=== PATIENT | female | born 1945 | race African-American/Black ===

== ENCOUNTER 2024-04-23 09:37 | Outpatient (AMB) | payer MEDICARE, SELFPAY ==
--- NOTE | 2024-04-23 09:45 | A.OFFVIS_ITS ---
Vital Signs 04/23/24 09:50 Height 5 ft 2.5 in Weight 171 lb 2 oz BMI 30.8 BP 136/78 Blood Pressure Location Rt brachial Position Sitting Respiration 16 Pulse 78 Pulse Source Pulse Oximeter Pulse Oximetry (%) 98 Oxygen Delivery Method Room Air Intake Visit Reasons: ENP: Dementia - CONF Intake Note: Pt presents for new pt consultation for dementia. Roof Panel Hanger Required: No Allergies diphtheria,pertussis (acellular),te [From Adacel(Tdap Adolesn/Adult)(PF)] Allergy (Mild, Verified 04/23/24 09:47) Unknown metronidazole Allergy (Mild, Verified 04/23/24 09:47) Unknown pentazocine [From Talwin] Allergy (Mild, Verified 04/23/24 09:47) Unknown Medication List - Last Reconciled 04/23/24 by Bria Manriquez MD albuterol sulfate 90 mcg/actuation 2 puffs inhalation Q6H PRN cholecalciferol (vitamin D3) 50 mcg PO DAILY famotidine 20 mg PO DAILY metformin 500 mg PO DAILY HPI Comments Details: 78y/o Right handed female comes for evaluation of cognitive issues. she is accompanied by her daughter who helps with history.In 2019 her family started noticing that the patient was having some issues with cognition. It has progressed since then , has trouble recalling , trouble with conversations, difficulty making decisions, poor judgement, misplacing things around the house etc. she mahmood snot cook as frequently as she was before but independent in all her ADLs. she drives rarely usually with someone in the car. she used work as a geriatric nurse , has fh/o Alzheimers - mother. Mood is stable Sleep- used to work night shifts and still has some circadian rhythm issues.she also snoring and excessive daytime fatigue [facility] Medical History (Updated 04/23/24 @ 10:22 by Bria Manriquez MD) Hypersomnia Snoring Cognitive change Chronic kidney disease Fibroids Asthma Lumbar spondylosis Arthritis Glaucoma Diabetes Surgical History H/O colonoscopy Social History Household Members: Family Housing: House Alcohol intake: current Comment: seldom Patient Tobacco Use Status: Never used Tobacco Physical Exam Vital Signs: Last Vital Signs Pulse 78 04/23/24 09:50 Resp 16 04/23/24 09:50 BP 136/78 04/23/24 09:50 Pulse Ox 98 04/23/24 09:50 Oxygen Delivery Method Room Air 04/23/24 09:50 BMI result Body Mass Index 30.8 Const General: cooperative, healthy appearing, comfortable and no acute distress Nutritional Appearance: overweight Orientation/consciousness: patient oriented x3 Eyes Pupils: Equal, round and reactive pupils present Neuro General: patient oriented x3, gait normal, tone normal, moves all extremities and no focal motor deficits Cranial nerves: Yes Facial sensation intact/muscles of mastication intact, Yes Equal, round and reactive pupils present, Yes Bilaterally intact EOM present, Yes Nystagmus not present, Yes Normal facial strength present, Yes Midline tongue present, Yes Symmetric palate elevation present and Yes Ability to bilaterally elevate shoulders present Cognition (Neuro): normal cognition Gait exam (Neuro): Normal gait present Motor exam (neuro): 5/5 motor strength present throughout and Normal motor muscle tone present throughout Deep tendon reflexes (DTR's): Right triceps reflex intensity grade: 2+, Left triceps reflex intensity grade: 2+, Rt Biceps (C5, C6): 2+, Left biceps reflex intensity grade: 2+, Right brachioradialis reflex intensity grade: 2+, Left brachioradialis reflex intensity grade: 2+ and Right patellar reflex intensity grade: 2+ Coordination: [id number] test normal Orientation What is the (year) (season) (date) (day) (month)?: year, season, date, day and month Where are we (state) (county) (town or city) (hospital) (floor)?: state, county, town or city, hospital/clinic and floor Registration Name of 3 unrelated objects clearly and slowly, then ask patient to repeat all 3 of them. (1st repeat determines score. Make sure they can repeat all three): object 1, object 2 and object 3 Attention & Calculation (CHOOSE ONE) Spell WORLD backwards (DLROW): 5 letters Recall Ask patient to repeat the 3 items from question #3.: object 1, object 2 and object 3 Language Show patient a wristwatch & ask what it is. Repeat for pencil.: watch and pencil Ask the patient to repeat the phrase 'No ifs, ands, or buts' after you.: correct Ask the patient to 'take a piece of paper with their right hand' 'fold paper in half' 'place paper on floor': take paper in right hand, fold paper in half and place paper on floor Print the sentence 'CLOSE YOUR EYES' on a piece. If patient actually closes eyes then score.: followed written direction Give patient a blank piece of paper & ask to write a sentence. Score if it contains a noun & verb.: sentence contains subject and verb Ask patient to copy figure of intersecting pentagons exactly. Score if all 10 angles & 2 intersects are included.: all 10 angles present & 2 are intersected Score Score: 30 Assessment & Plan Assessment & Plan (1) Cognitive change: Comment: ? mild cognitive impairment Code(s): R41.89 - Other symptoms and signs involving cognitive functions and awareness Category: Medical (2) Snoring: Code(s): R06.83 - Snoring Category: Medical (3) Hypersomnia: Code(s): G47.10 - Hypersomnia, unspecified Category: Medical Plan MRI brain Labs- TSH ESR RPR CBC CMP Home sleep test to r/o sleep apnea Orders: Orders Complete Blood Count Auto Diff Today G47.10 - Hypersomnia, unspecified, R06.83 - Snoring, R41.89 - Other symptoms and signs involving cognitive functions and awareness TSH reflex Free T4 Today G47.10 - Hypersomnia, unspecified, R06.83 - Snoring, R41.89 - Other symptoms and signs involving cognitive functions and awareness MR brain wo con w neuroquant Today G47.10 - Hypersomnia, unspecified, R06.83 - Snoring, R41.89 - Other symptoms and signs involving cognitive functions and awareness RT home sleep study Today G47.10 - Hypersomnia, unspecified, R06.83 - Snoring, R41.89 - Other symptoms and signs involving cognitive functions and awareness Comprehensive Met. Panel Today G47.10 - Hypersomnia, unspecified, R06.83 - Snoring, R41.89 - Other symptoms and signs involving cognitive functions and awareness Vitamin B12 and Folate Today G47.10 - Hypersomnia, unspecified, R06.83 - Snoring, R41.89 - Other symptoms and signs involving cognitive functions and awareness Erythrocyte Sedimentation Rate Today G47.10 - Hypersomnia, unspecified, R06.83 - Snoring, R41.89 - Other symptoms and signs involving cognitive functions and awareness RPR Monitor reflex titer Today G47.10 - Hypersomnia, unspecified, R06.83 - Snoring, R41.89 - Other symptoms and signs involving cognitive functions and awareness Vitamin D 25-OH (D2 and D3) Today R41.89 - Other symptoms and signs involving cognitive functions and awareness Coding Level of Care Code New Pt Level 4 (45009) Diagnoses Cognitive change R41.89 Snoring R06.83 Hypersomnia G47.10
[2024-04-23 09:50] VITALS: BP 136/78; PULSE 78; RESP 16; O2SAT 98; BMI 30.8
== END 2024-04-23 10:27 | disposition home or self-care (01) ==
PROVIDERS: PCP Student in an Organized Health Care Education/Training Program; Visit Provider Psychiatry & Neurology Neurology
DX: R41.89 Other symptoms and signs involving cognitive functions and awareness (principal); R06.83 Snoring; G47.10 Hypersomnia, unspecified
CPT/HCPCS: 99204

== ENCOUNTER → 2024-04-23 09:37 | Outpatient (BNVA) | payer MEDICARE, SELFPAY | PROVIDERS: PCP Student in an Organized Health Care Education/Training Program; Visit Provider Psychiatry & Neurology Neurology | DX: R41.89 Other symptoms and signs involving cognitive functions and awareness (principal); R06.83 Snoring; G47.10 Hypersomnia, unspecified | CPT/HCPCS: 99202 ==

== ENCOUNTER 2024-04-23 10:33 | Outpatient (REF) | payer MEDICARE, SELFPAY ==
[2024-04-23 17:26] LABS: MANUAL DIFF FLAG NO
[2024-04-23 17:48] LABS: Basophils Percent Auto 0.7 % (0-2); Eosinophils Absolute Auto 0.1 X10*3/uL (0.0-0.4); Eosinophils Percent Auto 0.9 % (0-4); Hematocrit 42.4 % (37.0-47.0); Hemoglobin 13.8 g/dl (12.0-16.0); Imm Gran Abs Auto 0.01 X10*3/uL (0.00-0.03); Imm Gran Pct Auto 0.2 % (0.0-0.4); Lymphocytes Percent Auto 35.2 % (20-40); Mean Corpuscular HGB Conc 32.5 g/dl (31.0-35.0); Mean Corpuscular Hemoglobin 31.2 pg (27.0-33.0); Mean Corpuscular Volume 95.7 fL (80.0-98.0); Mean Platelet Volume 12.8 fL (9.4-12.3); Monocytes Absolute Auto 0.3 X10*3/uL (0.1-1.2); Monocytes Percent Auto 5.9 % (2-11); Neutrophils Absolute Auto 3.3 x10*3/uL (2.0-8.3); Neutrophils Percent Auto 57.1 % (45-73); Platelet Count 171 X10*3/uL (160-400); Red Blood Count 4.43 X10*6/uL (4.20-5.50); Red Cell Distribution Width 13.8 % (11.0-16.0); White Blood Count 5.8 X10*3/uL (4.8-10.8)
[2024-04-23 17:58] LABS: Alanine Aminotransferase 20 U/L (0-31); Albumin Level 4.4 g/dL (3.5-5.0); Alkaline Phosphatase 74 U/L (39-117); Anion Gap 12 (12-20); Aspartate Amino Transferase 19 U/L (5-31); Bilirubin Total 1.2 mg/dL (0.0-1.0); Blood Urea Nitrogen 16 mg/dL (9-16); Calcium 10.3 mg/dL (8.4-10.2); Carbon Dioxide 26 mmol/L (22-29); Chloride 108 mmol/L (96-108); Estimated Glomerular Filt Rate 42; Glucose Random 217 mg/dL (60-115); Potassium 4.2 mmol/L (3.3-5.1); Sodium 142 mmol/L (135-145); Total Protein 7.8 g/dL (6.5-8.0)
[2024-04-23 18:14] LABS: TSH reflex Free T4 1.17 uIU/mL (0.32-4.0)
[2024-04-23 18:24] LABS: Folate 6.8 ng/mL (> or = 4.0); Vitamin B12 494 pg/mL (200-900)
[2024-04-23 18:46] LABS: Erythrocyte Sedimentation Rate 14 MM/HR (0-20)
[2024-04-24 23:39] LABS: RPR Rapid Plasma Reagin NON-REACTIVE (NON-REACTIVE)
[2024-04-27 16:08] LABS: Vitamin D 25-OH, D2 <4 ng/mL; Vitamin D 25-OH, D3 28 ng/mL; Vitamin D 25-OH, Total 28 ng/mL (30-100)
== END 2024-04-23 10:34 | disposition home or self-care (01) ==
LOC: HO.HKASLDS 10:33
PROVIDERS: Visit Provider Psychiatry & Neurology Neurology
DX: R41.89 Other symptoms and signs involving cognitive functions and awareness (principal); R06.83 Snoring; G47.10 Hypersomnia, unspecified
CPT/HCPCS: 36415; 80053; 82306; 82607; 82746; 84443; 85025; 85652; 86592

== ENCOUNTER → 2024-06-10 13:06 | Outpatient (REF) | payer MEDICARE, SELFPAY | LOC: HO.SL 13:06 | PROVIDERS: PCP Student in an Organized Health Care Education/Training Program; Visit Provider Psychiatry & Neurology Neurology | DX: R06.83 Snoring (principal); R41.89 Other symptoms and signs involving cognitive functions and awareness; G47.10 Hypersomnia, unspecified | CPT/HCPCS: 95806 ==

== ENCOUNTER → 2024-06-15 13:44 | Outpatient (BNV) | payer MEDICARE, SELFPAY | PROVIDERS: PCP Student in an Organized Health Care Education/Training Program; Visit Provider Psychiatry & Neurology Neurology | DX: R06.83 Snoring (principal) | CPT/HCPCS: 95806 ==

== ENCOUNTER 2024-06-23 10:35 | Outpatient (REF) | payer MEDICARE, SELFPAY ==
--- NOTE | ~2024-06-23 | MR_ITS ---
EXAMINATION: MR BRAIN WITHOUT CONTRAST NEUROQUANT VOLUME ANALYSIS CLINICAL INFORMATION: Memory issues COMPARISON: None TECHNIQUE: Multiplanar multisequence MR imaging of the brain was obtained without intravenous contrast. Additional high-resolution anatomic imaging was performed through the brain and images were submitted for post processing including auto-segmentation and volumetric analysis. FINDINGS: There is no acute infarct on diffusion-weighted imaging. There is no intracranial hemorrhage on iron-sensitive imaging. No extra-axial collection or mass effect/herniation. Scattered periventricular and deep white matter and right pontine T2 FLAIR hyperintensities consistent with mild underlying microangiopathy. No hydrocephalus. Mild age-appropriate generalized cerebral volume loss with commensurate sulcal and ventricular prominence. The major flow voids at the skull base are preserved. Partially empty sella. The cerebellar tonsils are normally positioned. The craniocervical junction is normal. Degenerative changes of the upper cervical spine. Marrow signal is within normal limits. The visualized soft tissues are without significant abnormality. No signal abnormality within the paranasal sinuses or within the mastoid air cells. Baseline NeuroQuant morphometric assessment of the brain was performed. Hippocampal volumes have an age-adjusted normative percentile of 5. The superior lateral ventricles have a normative percentile of 76, and the inferior lateral ventricles have a normative percentile of 61. MR/MR brain wo con w neuroquant IMPRESSION: 1. Baseline hippocampal volumes are low without ex-vacuo dilatation. 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 A follow up examination is recommended to establish presence and trajectory of volume change. 2. Mild age-appropriate generalized volume loss and mild chronic microangiopathy. Electronically signed by: Marck Avila MD 07/08/2024 12:05 PM EDT
== END 2024-06-23 10:36 | disposition home or self-care (01) ==
LOC: HO.MRI 10:35
PROVIDERS: PCP Student in an Organized Health Care Education/Training Program; Visit Provider Psychiatry & Neurology Neurology
DX: R41.89 Other symptoms and signs involving cognitive functions and awareness (principal); R06.83 Snoring; G47.10 Hypersomnia, unspecified
CPT/HCPCS: 70551; 76377

== ENCOUNTER 2024-09-22 09:14 | Outpatient (AMB) | payer MEDICARE, SELFPAY ==
--- NOTE | 2024-09-22 09:17 | A.OFFVIS_ITS ---
Vital Signs 09/22/24 09:18 Height 5 ft 2.5 in Weight 176 lb 6 oz BMI 31.7 Intake Visit Reasons: follow up Dementia Intake Note: Patient presents for dementia Allergies diphtheria,pertussis (acellular),te [From Adacel(Tdap Adolesn/Adult)(PF)] Allergy (Mild, Verified 09/22/24 09:22) Unknown metronidazole Allergy (Mild, Verified 09/22/24 09:22) Unknown pentazocine [From Talwin] Allergy (Mild, Verified 09/22/24 09:22) Unknown HPI Comments Details: 78y/o Right handed female comes for evaluation of cognitive issues. She is accompanied by her daughter who helps with history. In 2019 her family started noticing that the patient was having some issues with cognition. It has progressed since then, has trouble recalling , trouble with conversations, difficulty making decisions, poor judgment, Misplacing things around the house etc. She can retrace her steps and find her items, but needs lists or else she will be shopping with her eyes when grocery shopping. She does not cook as frequently as she was before but independent in all her ADLs. Does not go up the stairs, created the living room into her bedroom. She drives locally and rarely usually with someone in the car. 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 Mood is stable she is happy, does crossword puzzles and word finders games. Exercises sometimes. Her children bring her to appointments, and keep an eye on her, the neighbors are friendly watch over her. Sleep- used to work night shifts and still has some circadian rhythm irregularities, she also snores at night. and has excessive daytime fatigue. Vision changes, needs to f/u has had some blurry vision. Hearing changes, can hear well at baseline but needs to f/u. Her diet is not good, but she is focusing on nutritional dense foods now after being diagnosed with diabetes, she has a sweet tooth. PFS Medical History Hypersomnia Snoring Cognitive change Chronic kidney disease Fibroids Asthma Lumbar spondylosis Arthritis Glaucoma Diabetes Surgical History H/O colonoscopy Social History Household Members: Family Housing: House Alcohol intake: current Comment: seldom Patient Tobacco Use Status: Never used Tobacco Review of Systems Const All systems reviewed & are unremarkable except as noted in HPI and below ENT Reports Normal hearing present Neuro Reports Normal hearing present Physical Exam Vital Signs: BMI result Body Mass Index 31.7 Const General: cooperative, comfortable and no acute distress Nutritional Appearance: average body habitus Orientation/consciousness: patient oriented x3 Eyes Pupils: Equal, round and reactive pupils present Resp Effort & Inspection: normal respiratory effort and able to speak in complete sentences Neuro General: patient oriented x3 and moves all extremities Cranial nerves: Yes CN's II-XII intact bilaterally, Yes Facial sensation intact/muscles of mastication intact, Yes Equal, round and reactive pupils present, Yes Normal accommodation reflex present, Yes Bilaterally intact EOM present, Yes Nystagmus not present, Yes Normal facial strength present, Yes Midline tongue present, Yes Normal hearing present, Yes Ability to bilaterally rotate head present and Yes Ability to bilaterally elevate shoulders present Gait exam (Neuro): Normal gait present Motor exam (neuro): 5/5 motor strength present throughout Deep tendon reflexes (DTR's): Right triceps reflex intensity grade: 2+, Left triceps reflex intensity grade: 2+, Rt Biceps (C5, C6): 2+, Left biceps reflex intensity grade: 2+, Right brachioradialis reflex intensity grade: 2+, Left brachioradialis reflex intensity grade: 2+, Right patellar reflex intensity grade: 2+ and Left patellar reflex intensity grade: 2+ Coordination: [id number] test normal Psych Appearance: well kempt Speech and movement: Slowed movement present (Neuro) Affect: normal affect Attitude: cooperative Thought process: Normal thought process present Thought content: Normal thought content present Orientation What is the (year) (season) (date) (day) (month)?: year, season, date and month Where are we (state) (county) (town or city) (hospital) (floor)?: state, county, town or city, hospital/clinic and floor Registration Name of 3 unrelated objects clearly and slowly, then ask patient to repeat all 3 of them. (1st repeat determines score. Make sure they can repeat all three): object 1, object 2 and object 3 Attention & Calculation (CHOOSE ONE) Spell WORLD backwards (DLROW): 5 letters Recall Ask patient to repeat the 3 items from question #3.: object 1, object 2 and object 3 Language Show patient a wristwatch & ask what it is. Repeat for pencil.: watch and pencil Ask the patient to repeat the phrase 'No ifs, ands, or buts' after you.: incorrect Ask the patient to 'take a piece of paper with their right hand' 'fold paper in half' 'place paper on floor': take paper in right hand and fold paper in half Print the sentence 'CLOSE YOUR EYES' on a piece. If patient actually closes eyes then score.: followed written direction Score Score: 25 Results Reviewed Results Reviewed: MRI Baseline NeuroQuant morphometric assessment of the brain was performed. Hippocampal volumes have an age-adjusted normative percentile of 5. The superior lateral ventricles have a normative percentile of 76, and the inferior lateral ventricles have a normative percentile of 61. HST 06/2024 Normal sleep study AHI <4 and O2 ethan 82% Assessment & Plan Assessment & Plan (1) Cognitive change: Comment: mild cognitive impairment Code(s): R41.89 - Other symptoms and signs involving cognitive functions and awareness Category: Medical (2) Hypersomnia: Code(s): G47.10 - Hypersomnia, unspecified Category: Medical (3) Snoring: Code(s): R06.83 - Snoring Category: Medical Plan MRI reviewed results with patient regarding changes on MRI Baseline NeuroQuant morphometric assessment of the brain was performed. Hippocampal volumes have an age-adjusted normative percentile of 5. The superior lateral ventricles have a normative percentile of 76, and the inferior lateral ventricles have a normative percentile of 61. HST Reviewed Results with patient today: HST 06/2024 Normal sleep study AHI <4 and O2 ethan 82% Cognitive Disorder MMSE 25/30 - in office today -Will send her for PET Scan to determine next steps in therapy. -Will Start her on Memantine and taper up to 28mg PO daily. 7mg PO daily for 2 weeks, then taper to 14mg PO daily for 2 weeks, then taper to 21mg PO daily for two weeks, then taper up to 28mg PO daily for 2 weeks. Follow up with Clinic by phone call or message us on the portal if you have any questions or concerns, on the portal or phone call. Orders: Orders PET Brain beta amyloid Today R41.89 - Other symptoms and signs involving cognitive functions and awareness Medications: New memantine 7mg PO daily -Take this medication for 14 days. Then taper up to the next dos e. 7 mg PO DAILY 14 ea 0RF 14 days R41.89 - Other symptoms and signs involving cognitive functions and awareness memantine 21mg PO daily for 14 days. Take this medication for 14 days then taper up to to the next dose. 21 mg PO DAILY 14 ea 0RF R41.89 - Other symptoms and signs involving cognitive functions and awareness memantine Take this medication 28mg PO daily. Call the office if you have any questions or concerns. 28 mg PO DAILY 30 ea 3RF R41.89 - Other symptoms and signs involving cognitive functions and awareness memantine 14mg PO daily, take this medication for 14 days and then taper up to the next dose. 14 mg PO DAILY 14 ea 0RF R41.89 - Other symptoms and signs involving cognitive functions and awareness Coding Level of Care Code Est Pt Level 4 (31898) Complex EM visit Add On G2211 Diagnoses Cognitive change R41.89 Hypersomnia G47.10 Snoring R06.83 Time Spent (min) 40 Comment Worsening dementia
[2024-09-22 09:18] VITALS: BMI 31.7
== END 2024-09-22 10:11 | disposition home or self-care (01) ==
PROVIDERS: PCP Student in an Organized Health Care Education/Training Program; Visit Provider Physician Assistant Medical
DX: R41.89 Other symptoms and signs involving cognitive functions and awareness (principal); G47.10 Hypersomnia, unspecified; R06.83 Snoring
CPT/HCPCS: 99214; G2211

== ENCOUNTER → 2024-09-22 09:14 | Outpatient (BNVA) | payer MEDICARE, SELFPAY | PROVIDERS: PCP Student in an Organized Health Care Education/Training Program; Visit Provider Physician Assistant Medical | DX: R41.89 Other symptoms and signs involving cognitive functions and awareness (principal); G47.10 Hypersomnia, unspecified; R06.83 Snoring | CPT/HCPCS: 99212 ==

== ENCOUNTER 2025-03-24 09:35 | Outpatient (AMB) | payer MEDICARE, SELFPAY ==
[2025-03-24 09:40] VITALS: BP 120/76; PULSE 77; O2SAT 97; BMI 31.2
--- NOTE | 2025-03-24 09:40 | MHC.OFFVIS ---
Vital Signs 03/24/25 09:40 Height 5 ft 2.5 in Weight 173 lb 8 oz BMI 31.2 BP 120/76 Blood Pressure Location Rt brachial Position Sitting Pulse 77 Pulse Source Pulse Oximeter Pulse Oximetry (%) 97 Oxygen Delivery Method Room Air Intake Visit Reasons: follow up Dementia Intake Note: Patient presents follow up Dementia medication. No-showed PET. Allergies diphtheria,pertussis (acellular),te [From Adacel(Tdap Adolesn/Adult)(PF)] Allergy (Mild, Verified 03/24/25 09:44) Unknown metronidazole Allergy (Mild, Verified 03/24/25 09:44) Unknown pentazocine [From Talwin] Allergy (Mild, Verified 03/24/25 09:44) Unknown HPI Comments Details: 79y/o Right handed female comes for evaluation of cognitive issues. She is accompanied by her daughter Kyara who helps with history, they missed the pet scan appt due to a in the family in . HST 06/2024 was inconclusive AHI is 3.4, and OAI 1.6, oxygen Nadirs to 82%. MRI 06/2024 volume loss in hippocami and neuroquant reviewed with patient. In 2019 her family started noticing she has trouble recalling , trouble with conversations, difficulty making decisions, poor judgment. Misplacing things around the house etc. Now she is more delusional, gets confused with past occurrences and timelines. She snores at night, has irregular sleep patterns and is chronically fatigued. She can retrace her steps and find her items, but needs lists and taskers to prompt her memory. She used to work as a geriatric nurse, has fh/o Alzheimers, mother and father, both in 90s when passed. She is independent in all her ADLs. She no longer is driving, or climbing stairs, she is looking for a one bedroom apt that is one level. MMSE 26/30 today. Recently diagnosed with diabetes, and blood sugars in the 160s metformin 500mg, since April. Mood is stable she is happy, does crossword puzzles and word finders games. Her children bring her to appointments, and the neighbors visit daily. Vision gets blurry and she gets headaches 2-3 times a week but go away in 30 min with diet, naps or water intake, will monitor. She started walking sometimes and this still is challenging for her as she is an introvert. [facility] Medical History Hypersomnia Snoring Cognitive change Chronic kidney disease Fibroids Asthma Lumbar spondylosis Arthritis Glaucoma Diabetes Surgical History H/O colonoscopy Social History Household Members: Family Housing: House Alcohol intake: current Comment: seldom Patient Tobacco Use Status: Never used Tobacco Physical Exam Vital Signs: Last Vital Signs Pulse 77 03/24/25 09:40 BP 120/76 03/24/25 09:40 Pulse Ox 97 03/24/25 09:40 Oxygen Delivery Method Room Air 03/24/25 09:40 BMI result Body Mass Index 31.2 Const General: cooperative, comfortable and no acute distress Nutritional Appearance: average body habitus Orientation/consciousness: patient oriented x3 Eyes Pupils: Equal, round and reactive pupils present Resp Effort & Inspection: normal respiratory effort and able to speak in complete sentences Neuro General: patient oriented x3 and moves all extremities Cranial nerves: Yes Facial sensation intact/muscles of mastication intact, Yes Equal, round and reactive pupils present, Yes Normal accommodation reflex present, Yes Normal facial strength present, Yes Ability to bilaterally rotate head present and Yes Ability to bilaterally elevate shoulders present Gait exam (Neuro): Normal gait present Motor exam (neuro): 5/5 motor strength present throughout Psych Appearance: well kempt Speech and movement: Slowed movement present (Neuro) Affect: normal affect Attitude: cooperative Thought process: Normal thought process present Thought content: Normal thought content present Orientation What is the (year) (season) (date) (day) (month)?: year, season, date, day and month Where are we (state) (county) (town or city) (hospital) (floor)?: state, county, town or city and hospital/clinic Registration Name of 3 unrelated objects clearly and slowly, then ask patient to repeat all 3 of them. (1st repeat determines score. Make sure they can repeat all three): object 1, object 2 and object 3 Attention & Calculation (CHOOSE ONE) Spell WORLD backwards (DLROW): 3 letters Recall Ask patient to repeat the 3 items from question #3.: object 1, object 2 and object 3 Language Show patient a wristwatch & ask what it is. Repeat for pencil.: watch and pencil Ask the patient to repeat the phrase 'No ifs, ands, or buts' after you.: correct Ask the patient to 'take a piece of paper with their right hand' 'fold paper in half' 'place paper on floor': take paper in right hand, fold paper in half and place paper on floor Print the sentence 'CLOSE YOUR EYES' on a piece. If patient actually closes eyes then score.: followed written direction Give patient a blank piece of paper & ask to write a sentence. Score if it contains a noun & verb.: sentence contains subject and verb Score Score: 26 Results Reviewed Results Reviewed: HST 06/2024 was inconclusive AHI is 3.4, and OAI 1.6, oxygen Nadirs to 82%. MRI 06/2024 volume loss in hippocami and neuroquant reviewed with patient. Assessment & Plan Assessment & Plan (1) Cognitive change: Comment: mild cognitive impairment/ alzheimers not LBD Code(s): R41.89 - Other symptoms and signs involving cognitive functions and awareness Category: Medical (2) Loud snoring: Code(s): R06.83 - Snoring Category: Medical (3) Frequent headaches: Code(s): R51.9 - Headache, unspecified Category: Medical (4) Excessive daytime sleepiness: Code(s): G47.19 - Other hypersomnia Category: Medical (5) Hypersomnia: Code(s): G47.10 - Hypersomnia, unspecified Category: Medical (6) Snoring: Code(s): R06.83 - Snoring Category: Medical Plan 06/2024 MRI reviewed results with patient regarding changes on MRI Baseline NeuroQuant. Hippocampal volumes have an age-adjusted normative percentile of 5. HST reviewed AHI <4 and O2 ethan 82%, will send for PSG as patient has excessive daytime fatigue. Cognitive Decline/ Alzheimers early onset.MMSE 26/30 Will send her for PET Scan to determine next steps in therapy along with APO E4 testing for leqembi or kisunla therapy? Continue Memantine 28mg po daily. Continue to socialize, do puzzles, walking daily for 15 - 30 min as tolerable and drinking lots of water. Labs are pending vit d is low, take a daily vit d, refer to pcp re: A1c and blood glucose. Headaches sumatriptatn 50mg po as needed for acute headaches, may repeat in 2hours, not to exceed 100mg in a 24 hour period. f/u in 3mons. Orders: [place] [facility] [place] F02.80 - Dementia in other diseases classified elsewhere, unspecified severity, without behavioral disturbance, psychotic disturbance, mood disturbance, and anxiety, G30.9 - Alzheimer's disease, unspecified Complete Blood Count no Diff 03/24/25 G47.19 - Other hypersomnia, R41.89 - Other symptoms and signs involving cognitive functions and awareness TSH reflex Free T4 03/24/25 G47.19 - Other hypersomnia, R41.89 - Other symptoms and signs involving cognitive functions and awareness Vitamin B12 and Folate 03/24/25 G47.19 - Other hypersomnia, R41.89 - Other symptoms and signs involving cognitive functions and awareness RT PSG in-lab sleep study 03/24/25 G47.19 - Other hypersomnia, R06.83 - Snoring Comprehensive Met. Panel 03/24/25 G47.19 - Other hypersomnia, R41.89 - Other symptoms and signs involving cognitive functions and awareness Ferritin 03/24/25 G47.19 - Other hypersomnia, R41.89 - Other symptoms and signs involving cognitive functions and awareness Hemoglobin A1c 03/24/25 G47.19 - Other hypersomnia, R41.89 - Other symptoms and signs involving cognitive functions and awareness Homocysteine 03/24/25 G47.19 - Other hypersomnia, G47.9 - Sleep disorder, unspecified, R41.89 - Other symptoms and signs involving cognitive functions and awareness, R53.83 - Other fatigue Methylmalonic Acid 03/24/25 G47.19 - Other hypersomnia, G47.9 - Sleep disorder, unspecified, R41.89 - Other symptoms and signs involving cognitive functions and awareness, R53.83 - Other fatigue Vitamin D 25-OH Total 03/24/25 G47.19 - Other hypersomnia, R41.89 - Other symptoms and signs involving cognitive functions and awareness Medications: New sumatriptan succinate 50 mg orally; at the onset of acute headaches may repeat in 2 hours if headache does not subside. not to exceed 100mg po with in 24 hours. 10 tabs 0RF headaches 30 days MDD 100mg R51.9 - Headache, unspecified Changed From cholecalciferol (vitamin D3) 50 mcg PO DAILY G47.19 - Other hypersomnia To cholecalciferol (vitamin D3) take one capsule 2000unit po at bedtime daily. 50 mcg PO DAILY 90 caps 2RF low vitamin d 90 days MDD 2000 units G47.19 - Other hypersomnia Refilled memantine Take this medication 28mg PO daily. Call the office if you have any questions or concerns. 28 mg PO DAILY 30 ea 3RF R41.89 - Other symptoms and signs involving cognitive functions and awareness Patient Instructions: Sleep Hygiene provided: set a scheduled bedtime and wake time to help regulate the circadian rhythm and balance the release of pituitary hormones. Sleep in a dark room, temperatures below 68 degrees, and no devices n bed. Limit caffeinated products 6 hours prior to bed, and limit fluids 2-4 hours prior to bed. Gentle night yoga, diffusing essential oils, and playing soft music can be relaxing. Coding Level of Care Code Est Pt Level 4 (03441) Complex EM visit Add On G2211 Diagnoses Cognitive change R41.89 Loud snoring R06.83 Frequent headaches R51.9 Excessive daytime sleepiness G47.19 Hypersomnia G47.10 Snoring R06.83 Time Spent (min) 30 Comment Improving
--- OUTSIDE RECORDS SUMMARY | 2025-03-24 10:30 | XMS_ITS | Clinical Summary ---
Author Organization 175 [facility] Address [address] [place] [address] Phone Care Team Providers Care Negotiator Sales Name Role Phone Danis Abraham MD Primary Care Provider [phone] Allergies Active Allergy Reactions Criticality Noted Date Comments Diph,Pertus(Acel),Tet Ped (Pf) 06/10/2008 Arm swelled size of orange Metronidazole Itching 01/29/2008 Pentazocine Lactate Rash 07/04/2006 Medications acetaminophen (TYLENOL) 500 mg tablet Take 1 Tablet by mouth every 6 hours as needed for Pain. 4 Active albuterol HFA (PROAIR HFA ; PROVENTIL HFA ; VENTOLIN HFA) 90 mcg/actuation inhaler Inhale 2 Puffs into the lungs every 6 hours as needed for Cough or Wheezing. 3 Active cholecalciferol (VITAMIN D-3) 50 mcg (2,000 unit) tablet Take 1 Tablet by mouth daily. 3 Active diclofenac (VOLTAREN) 1 % topical gel Apply 1 g topically 3 times daily as needed (pain). 4 Active famotidine (PEPCID) 20 mg tablet Take 1 Tablet by mouth 2 times daily as needed for Heartburn. 3 Active metFORMIN XR (GLUCOPHAGE-XR) 500 mg 24 hr tablet Take 1 tablet 2 times daily after meal. 4 Active memantine (NAMENDA) 10 mg tablet Take 1 tablet (10 mg total) by mouth 2 (two) times a day. Active glipiZIDE (Glucotrol XL) 5 mg 24 hr tablet Take 1 tablet (5 mg total) by mouth 1 (one) time each day. Do not crush, chew, or split. 30 each 11 5 11/08/19 26 Active empagliflozin (Jardiance) 25 mg tablet Take 1 tablet (25 mg total) by mouth 1 (one) time each day in the morning. 30 tablet 3 5 Active ammonium lactate (AmLactin) 12 % lotion Apply topically if needed for dry skin. 400 g 2 5 12/15/19 Active Active Problems Problem Noted Date Diagnosed Date Type 2 diabetes mellitus wit hout complication, without long-term current use of insulin ([facility] V24, [facility] V28) 07/04/2023 Glaucoma 11/22/2017 Overview (09/01/2024): Opth (11/22/17) Primary osteoarthritis of both knees 11/08/2017 Spondylosis of lumbosacral r egion without myelopathy or radiculopathy 11/08/2017 CKD (chronic kidney disease) stage 2, GFR 60-89 ml/min 12/31/2012 Overview (09/01/2024): Renal (06/03/18): stable, does not require further intervention. Nephrology (11/07/17): Seen by Dr. Robin Hutosn. Nuclear sclerosis 12/31/2012 Torn rotator cuff 04/19/2009 Overview (09/01/2024): Partial; 2006 Diverticulitis of colon without hemorrhage 01/28 Overview (09/01/2024): Incidental finding at colonoscopy. Asthma 04/02/2007 Intramural leiomyoma of uterus 04/02/2007 Encounters Date Type Department Care Team Description 02/23/2025 Telephone Adult Medicine [address] [phone] aTwana Torres, PharmD Reschedule 02/15/2025 8:45 AM EDT Office Visit Orthopedic Surgery - [place] [address] 175 [facility] [address] [place] [phone] Reji Mayer DPM Controlled type 2 diabetes with neuropathy ([facility] V24, [facility] V28) (Primary Dx); Pain in toes of both feet; Metatarsalgia of right foot; Arthritis of both feet; Dermatophytosis, nail from Last 3 Months Immunizations Name Administration Dates Next Due Influenza trivalent, 0.5mL ( Fluad) 65yo and older 07/11/2023,08/05/2019,08/05/2017,08/15,07/28/2015 Influenza trivalent, 0.5mL ( Fluzone High-dose) 65yo and older 11/05/2024 Influenza trivalent, with pr eservative (Fluzone; Afluria) 6mo and older 07/28/2018,08/26/2013 PPD Test 01/22/2003,12/27/2000,12/25/2000 Pneumococcal conjugate 13 va lent (Prevnar 13, PCV13) 2mo and older 02/10/2015 Pneumococcal conjugate 20 va lent (Prevnar 20, PCV 20) 2mo and older 07/20/2023 Pneumococcal polysaccharide 23 valent (Pneumovax 23) 2yo and older 10/12/2013,06/10/2008 Tdap Tetanus diptheria acell ular pertussis (Boostrix; Adacel) 7yo and older 04/28/2008 Zoster Live 12/01/2013 Surgical History Surgery Date Site/Laterality Comments ECTOPIC SURGERY PROCEDURE: HISTORICAL ECTOPIC SURGERY; COMMENT: x 2 OTHER SURGICAL HISTORY 01/19 PROCEDURE: NUCLEAR SCAN OF BILIARY TRACT; COMMENT: neg COLONOSCOPY 10/20/03 PROCEDURE: ND COLONOSCOPY STOMA DX INCLUDING COLLJ SPEC SPX; COMMENT: Jay; neg; R 5 y COLONOSCOPY 11/04/08 PROCEDURE: ND COLONOSCOPY STOMA DX INCLUDING COLLJ SPEC SPX; COMMENT: cecal diverticulosis; repeat in 5 years COLONOSCOPY 3.. PROCEDURE: COLOREC CANC SCRN,COLONOSCPY HI RISK; COMMENT: tics; repeat in 5 yrs Medical History Medical History Date Comments Fetus or affected by ectopic of mother 04/02/2007 DX:Fetus or affected by ectopic of mother; COMMENT: x 2; Salpingectomies Unspecified asthma(493.90) 04/02/2007 DX:Un specified asthma(493.90) Intramural leiomyoma of uterus 04/02/2007 D X:Intramural leiomyoma of uterus Family history of malignant neoplasm of gastrointestinal tract 01/29/2008 DX:Family history of maligna nt neoplasm of gastrointestinal tract; COMMENT: Negative colonoscopy 10/21/2003, no colon cancer screening needed for 5 years. Diverticulosis of colon (wit hout mention of hemorrhage) 01/29/2008 DX:Diverticulosis of colon ( without mention of hemorrhage); COMMENT: Incidental finding at colonoscopy. Torn rotator cuff 04/19/2009 DX:Torn rotato r cuff Glaucoma 11/22/2017 DX:Glaucoma Type 2 diabetes mellitus wit hout complication, without long-term current use of insulin ([facility] V24, [facility] V28) 07/04/2023 DX:Type 2 diabetes mellitus without complication, without long-term current use of insulin ([facility]) Functional dyspepsia DX:Function al dyspepsia Family history of colon cancer D X:Family history of colon cancer Glaucoma 11/22/2017 Family History Medical History Relation Name Comments No Known Problems Aunt Arthritis Brother 1 Colon cancer Brother 1 Strabismus Brother 1 Diabetes Brother 2 No Known Problems Daughter Arthritis Father Glaucoma Father Hypertension Father CAD No Known Problems Maternal Grandfather Alzheimer's disease Maternal Grandmother Diabetes Maternal Grandmother Arthritis Mother Breast cancer Mother Cataracts Mother Glaucoma Mother Hypertension Mother Prostate cancer Other paternal gre at uncle No Known Problems Paternal Grandfather Diabetes Paternal Grandmother Breast cancer Sister Prostate cancer Uncle 1 maternal unc le Prostate cancer Uncle 2 maternal unc le Blindness Neg Hx Macular degeneration Neg Hx Ovarian cancer Neg Hx Relation Name Status Comments Aunt Brother 1 Brother 2 Daughter Father (Age 90) Heart Guilherme ck Maternal Grandfather Maternal Grandmother Mother Other Paternal Grandfather Paternal Grandmother Sister Uncle 1 Uncle 2 Social History Tobacco Use Types Packs/Day Years Used Date Smoking Tobacco: Never Smokeless Tobacco: Never Alcohol Use Standard Drinks/Week Comments Yes 0 (1 standard drink = 0.6 oz pur e alcohol) Comments Unknown Sex and Gender Information Value Date Recorded Sex Assigned at Not on file Legal Sex Female 9:19 PM EST Gender Identity Not on file Sexual Orientation Not on file Obstetrics History Last Filed Vital Signs Vital Sign Reading Time Taken Comments Blood Pressure 122/76 11/05/2024 10:05 AM EST Pulse 103 11/05/2024 10:05 AM EST Temperature 36.6 ??C (97.9 ??F) 11/05/2024 10:[address] Respiratory Rate - - Oxygen Saturation 98% 11/05/2024 10:05 AM EST Inhaled Oxygen Concentration - - Weight 76.2 kg (168 lb) 02/15/2025 9:20 AM EDT Height 162.6 cm (5' 4.02 ) 02/15/2025 9:20 AM ED T Body Mass Index 28.82 02/15/2025 9:20 AM EDT Plan of Treatment Upcoming Encounters Date Type Department Care Team (Late st Contact Info) Description 03/30/2025 8:45 AM EDT Office Visit Orthopedic Surgery [address] [phone] Reji Mayer DPM [address] [address] 05/05/2025 10:30 AM EDT Office Visit Internal Medicine [address] [phone] Danis Abraham MD [address] [address] 05/11/2025 8:30 AM EDT Medication Management Adult Medicine [address] [phone] Tawana Torres PharmD [address] [place] [id number] Health Maintenance Due Date Last Done Comments Diabetes: Annual Foot Exam 1955 Diabetes: Annual Retina Eye Exam 1955 Zoster Vaccines (1 of 2) 01/26/2014 12/01/2013 DTaP,Tdap,and Td Vaccines (2 - Td or Tdap) 04/28/2018 04/28/2008 RSV Immunization Adult Patients (1 - 1-dose 75+ series) 2022 COVID-19 Vaccine ( season) 2024 11/08/2023, 03/09/2021, 02/16/2021 Diabetes: Blood Sugar Control Test (HGBA1C) 05/05/2025 11/05/2024, 04/29/2024, 04/29/2024 Depression Screening 11/05/2025 11/05/2024, 10/28/19 Diabetes: Annual Urine Albumin-Creatinine Ratio (uACR) 11/05/2025 11/05/2024, 10/28/2023 Diabetes: Annual GFR (Glomerular Filtration Rate) 11/05/2025 11/05/2024, 04/29/2024, 04/29/2024 Falls Risk Assessment 11/05/2025 11/05/2024, 024 Medicare Annual Wellness Visit 11/05/2025 11/05/2024, 10/28/2023 Social Influencers of Health Screening 11/05/2025 11/05/2024 Colorectal Cancer Screening: Colonoscopy 01/13/2029 01/14/2024 Cholesterol Screening (Lipid Panel) 11/05/2029 11/05/2024, 10/28/2023 Osteoporosis Screening (Bone Density Screening) 08/22/2038 08/22/2023 Hepatitis C Screening Completed 02/20/2017 Pneumococcal Vaccine: 50+ Years Completed 07/20/2023, 02/10/2015, 10/12/2013, Additional history exists Breast Cancer Screening Discontinued 08/13/20 24, 08/13/2024, 08/08/2023, Additional history exists Influenza Vaccine Completed 11/05/2024, , 07/11/2023, Additional history exists HIB Vaccines Aged Out No longer eligi ble based on patient's age to complete this topic HPV Vaccines Aged Out No longer eligi ble based on patient's age to complete this topic Hepatitis A Vaccines Aged Out No long er eligible based on patient's age to complete this topic Hepatitis B Vaccines Aged Out No long er eligible based on patient's age to complete this topic IPV Vaccines Aged Out No longer eligi ble based on patient's age to complete this topic MMR Vaccines Aged Out No longer eligi ble based on patient's age to complete this topic Meningococcal ACWY Vaccine Aged Out N o longer eligible based on patient's age to complete this topic Meningococcal B Vaccine Aged Out No l onger eligible based on patient's age to complete this topic RSV Immunization Patients Under 20 months Aged Out No longer eligible based on patient's age to complete this topic Varicella Vaccines Aged Out No longer eligible based on patient's age to complete this topic Procedures Procedure Name Priority Date/Time Associated Diagnosis Comments MICROALBUMIN CREATININE URINE RATIO Routine 11/05/2024 11:03 AM EST Type 2 diabetes mellitus without complication, without long-term current use of insulin ([facility] V24, [facility] V28) COMPREHENSIVE METABOLIC PANEL Routine 11/05/2024 11:03 AM EST Medicare annual wellness visit, subsequent HEMOGLOBIN A1C Routine 11/05/2024 11:03 AM EST Medicare annual wellness visit, subsequent Type 2 diabetes mellitus without complication, without long-term current use of insulin ([facility] V24, [facility] V28) LIPID PANEL WITH REFLEX TO DIRECT LDL Routine 11/05/2024 11:03 AM EST Medicare annual wellness visit, subsequent Encounter for lipid screening for cardiovascular disease SCREENING MAMMOGRAPHY BI 2-VIEW BREAST INC CAD Routine 08/13/2024 2:28 PM EDT Encounter for gynecological examination (general) (routine) without abnormal findings COLONOSCOPY Routine 01/14/2024 DEPRESSION SCREENING Routine 10/28/2023 FALLS RISK ASSESSMENT Routine 10/28/2023 DXA BONE DENSITY STUDY 1+ SITS AXIAL SKEL Routine 08/22/2023 2:39 PM EST Chronic kidney disease, stage 2 (mild) Bilateral primary osteoarthritis of knee Mild intermittent asthma, uncomplicated Spondylosis without myelopathy or radiculopathy, lumbosacral region Age-related nuclear cataract, bilateral Primary open-angle glaucoma, bilateral, moderate stage Family history of malignant neoplasm of digestive organs Diverticulitis of large intestine without perforation or abscess without bleeding Encounter for general adult medical examination without abnormal findings HEPATITIS C SCREENING Routine 02/20/2017 from Last 3 Months or Most Recently Relevant to Health Maintenance Results * Lipid panel with reflex to direct LDL (11/05/2024 11:03 AM EST) Cholesterol 163 0 - 200 mg/dL LAB CHEMISTRY METHOD 11/05/2024 3:33 PM EST [facility] Triglycerides 95 0 - 150 mg/dL LAB CHEMISTRY METHOD 11/05/2024 3:33 PM EST [facility] HDL 70 >=40 mg/dL LAB CHEMISTRY METHOD 11/05/2024 3:33 PM EST [facility] LDL Calculated 74 0 - 100 mg/dL LAB CHEMISTRY METHOD 11/05/2024 3:33 PM [facility] VLDL Cholesterol Lucio 19 mg/dL LAB CHEMISTRY METHOD 11/05/2024 3:33 PM EST [facility] Non HDL Chol. (LDL+VLDL) 93 <145 mg/dL LAB CHEMISTRY METHOD 11/05/2024 3:33 PM EST [facility] Chol/HDL Ratio 2.3 0.0 - 4.4 LAB CHEMISTRY METHOD 11/05/2024 3:33 PM EST [facility] Blood Venous blood specimen / Unknown Venipuncture / Unknown 11/05/2024 11:03 AM EST 11/05/2024 11:03 AM EST us Danis Abraham MD LAB BLOOD ORDERABLES Final Resul t [facility] [address] [place] [address], * (ABNORMAL) Microalbumin creatinine urine ratio (11/05/2024 11:03 AM EST) Creatinine, Urine 561.0 mg/dL LAB CHEMISTRY METHOD 11/05/2024 3:08 PM EST [facility] Comment:Results verified by repeat testing Microalb, Ur 69.9(H) 0.0 - 29.0 mg/L LAB CHEMISTRY METHOD 11/05/2024 3:08 PM [facility] Microalb/Crea t Ratio 12 <30 mg/g creat LAB CHEMISTRY METHOD 11/05/2024 3:08 PM [facility] Urine Urine specimen from urethra / Unknown Non-blood Collection / Unknown 11/05/2024 11:03 AM EST 11/05/2024 11:03 AM EST us Danis Abraham MD LAB URINE ORDERABLES Final Resul t Performing Organization Address [facility]/ZIP Co de Phone Number [facility] [address] [place] [address], [place] [phone] * (ABNORMAL) Hemoglobin A1c (11/05/2024 11:03 AM EST) Hemoglobin A1C 9.4(H) <6.5 % LAB CHEMISTRY METHOD 11/05/2024 9:07 PM [facility] Mean Bld Glu Estim. 223 mg/dL LAB CHEMISTRY METHOD 11/05/2024 9:07 PM [facility] Blood Venous blood specimen / Unknown Venipuncture / Unknown 11/05/2024 11:03 AM EST 11/05/2024 11:03 AM EST us Danis Abraham MD LAB BLOOD ORDERABLES Final Resul t [facility] [address] [place] [address], [place] [phone] * (ABNORMAL) Comprehensive metabolic panel (11/05/2024 11:03 AM EST) Sodium 138 133 - 145 mmol/L LAB CHEMISTRY METHOD 11/05/2024 3:33 PM [facility] Potassium 4.1 3.5 - 5.5 mmol/L LAB CHEMISTRY METHOD 11/05/2024 3:33 PM [facility] Chloride 105 96 - 110 mmol/L LAB CHEMISTRY METHOD 11/05/2024 3:33 PM [facility] CO2 25 21 - 32 mmol/L LAB CHEMISTRY METHOD 11/05/2024 3:33 PM [facility] Anion Gap 8 3 - 11 LAB CHEMISTRY METHOD 11/05/2024 3:33 PM [facility] Glucose 256(H) 70 - 100 mg/dL LAB CHEMISTRY METHOD 11/05/2024 3:33 PM [facility] BUN 21 5 - 25 mg/dL LAB CHEMISTRY METHOD 11/05/2024 3:33 PM [facility] Creatinine 1.65(H) 0.50 - 1.10 mg/dL LAB CHEMISTRY METHOD 11/05/2024 3:33 PM [facility] eGFR 32(L) >=60 mL/min/1. 73m2 LAB CHEMISTRY METHOD 11/05/2024 3:33 PM [facility] Comment:Calculation based on the??Chronic Kidney Disease Epidemiology Collaboration (CKD-EPI) equation refit??without adjustment for race. BUN/Creatinine Ratio 12.7 LAB CHEMISTRY METHOD 11/05/2024 3:33 PM [facility] Calcium 9.7 8.5 - 10.5 mg/dL LAB CHEMISTRY METHOD 11/05/2024 3:33 PM [facility] AST (SGOT) 18 10 - 42 unit/L LAB CHEMISTRY METHOD 11/05/2024 3:33 PM [facility] ALT (SGPT) 26 10 - 60 unit/L LAB CHEMISTRY METHOD 11/05/2024 3:33 PM [facility] Alkaline Phosphatase 89 42 - 121 unit/L LAB CHEMISTRY METHOD 11/05/2024 3:33 PM EST [facility] Total Protein 8.1(H) 6.0 - 8.0 g/dL LAB CHEMISTRY METHOD 11/05/2024 3:33 PM EST [facility] Albumin 4.2 3.2 - 5.0 g/dL LAB CHEMISTRY METHOD 11/05/2024 3:33 PM EST [facility] Total Bilirubin 1.5(H) 0.0 - 1.4 mg/dL LAB CHEMISTRY METHOD 11/05/2024 3:33 PM EST [facility] Blood Venous blood specimen / Unknown Venipuncture / Unknown 11/05/2024 11:03 AM EST 11/05/2024 11:03 AM EST Danis Abraham MD LAB BLOOD ORDERABLES Final Resul t [facility] [address] [place] [address], * SCREENING MAMMOGRAPHY BI 2-VIEW BREAST INC CAD (08/13/2024 2:28 PM EDT) Anatomical Region Laterality Modality Radiographic Arabella ging 08/08/2023 4:09 PM EDT Narrative 08/14/2024 8:19 AM EDT This is a summary report. The complete report is available in the patient's medical record. If you cannot access the medical record, please contact the sending organization for a detailed fax or copy. Full field digital screening tomosynthesis mammography, reviewed with CAD and compared to previous mammogram of 08/08/2023. The breast tissue is heterogeneously dense, limiting sensitivity. No suspicious mass, architectural distortion or suspicious calcifications are identified. IMPRESSION: : Dense breast tissue, limiting the sensitivity of mammography. No mammographic evidence of malignancy. BIRADS 1-Negative; N. Breast density: The breasts are heterogeneously dense, which may obscure small masses. 5 year breast cancer risk assessment 1.3 % Lifetime breast cancer risk assessment 2.7 % Breast cancer risk category Low (<15%) Location: [facility], [address] [place] [address], [address], [phone] Procedure Note Susy Hill MD - 09/07/2024 This is a summary report. The complete report is available in thepatient's medical record. If you cannot access the medical record, pleasecontact the sending organization for a detailed fax or copy. Full field digital screening tomosynthesis mammography, reviewed with CADand compared to previous mammogram of 08/08/2023. The breast tissue isheterogeneously dense, limiting sensitivity. No suspicious mass,architectural distortion or suspicious calcifications are identified. IMPRESSION: : Dense breast tissue, limiting the sensitivity of mammography. Nomammographic evidence of malignancy. BIRADS 1-Negative; N. Breast density: The breasts are heterogeneously dense, which may obscuresmall masses. 5 year breast cancer risk assessment 1.3 % Lifetime breast cancer risk assessment 2.7 % Breast cancer risk category Low (<15%) Location: [facility], [address] [place] [address], [address], [phone] Nemo Forbes CNM IMG XR PROCEDURES Final Result * Colonoscopy (01/14/2024) Pathologist [facility] Colonoscopy Abstracted, no interpretation Anatomical Region Laterality Modality Other Historical Provider HEALTH MAINTENANCE Final Result * Falls Risk Assessment (10/28/2023) [facility] Falls Risk Assessment Abstracted Historical Provider HEALTH MAINTENANCE Final Result * Depression Screening (10/28/2023) Pathologist [facility] Depression Screening Abstracted Historical Provider HEALTH MAINTENANCE Final Result * DXA BONE DENSITY STUDY 1+ SITS AXIAL SKEL (08/22/2023 2:39 PM EST) Anatomical Region Laterality Modality Bone Densitometr y 06/11/2023 11:4 1 AM EDT Narrative 08/22/2023 2:53 PM EST BONE DENSITY (DEXA) ? Lumbar Spine T-score is 0.0. ?? (SD relative to 20-29 y/o adult) Z-score is 1.7. ??(SD relative to age matched peers) This is considered normal by WHO criteria. Left Hip T-score is -0.8. Z-score is 0.3. This is considered normal by WHO criteria. IMPRESSION: This patient is considered to have normal bone density by WHO criteria. The [facility] Department of Internal Medicine recommends using National Osteoporosis Foundation (NOF) guidelines in treatment decisions related to osteoporosis. NOF guidelines suggest considering treatment for postmenopausal women and men aged 50 or older presenting with the following: History of hip or vertebral fracture. T-score = -2.5 (DXA) at the femoral neck, total hip, or spine, after appropriate evaluation to exclude secondary causes. Low bone mass (T-score between -1.0 and -2.5 at the femoral neck or spine) AND a 10-year probability of a hip fracture = 3% OR a 10-year probability of a major osteoporosis-related fracture = 20% based on the [place]-adapted WHO algorithm Please note that all treatment decisions require clinical judgment and consideration of individual patient factors, including patient preferences, co-morbidities, previous drug use, risk factors not captured in the FRAX model (e.g., frailty, falls, vitamin D deficiency, increased bone turnover, interval significant decline in bone density) and possible under- or over-estimation of fracture risk by FRAX. Optional alternative screening schedule based on bernice Ambrocio., [facility] November 01, 2011 for patients with osteopenia (based on hip BMD T-score) is as follows: * ??advanced osteopenia (T scores -2.00 to -2.49), BMD testing every year * ??moderate osteopenia (T scores -1.50 to -1.99), BMD testing every 5 years mild osteopenia or normal BMD (T scores -1.50 and higher), BMD testing every 15 years Procedure Note Susy Hill MD - 11/19/2023 BONE DENSITY (DEXA) Lumbar Spine T-score is 0.0. (SD relative to 20-29 y/o adult) Z-score is 1.7. (SD relative to age matched peers) This is considered normal by WHO criteria. Left Hip T-score is -0.8. Z-score is 0.3. This is considered normal by WHO criteria. IMPRESSION: This patient is considered to have normal bone density by WHO criteria. The [facility] Department of Internal Medicinerecommends using National Osteoporosis Foundation (NOF) guidelines in treatment decisionsrelated to osteoporosis. NOF guidelines suggest considering treatment forpostmenopausal women and men aged 50 or older presenting with the following: History of hip or vertebral fracture. T-score = -2.5 (DXA) at the femoral neck, total hip, or spine, afterappropriate evaluation to exclude secondary causes. Low bone mass (T-score between -1.0 and -2.5 at the femoral neck or spine)AND a 10-year probability of a hip fracture = 3% OR a 10-year probability of a majorosteoporosis-related fracture = 20% based on the [place]-adapted WHO algorithm Please note that all treatment decisions require clinical judgment andconsideration of individual patient factors, including patient preferences, co- morbidities,previous drug use, risk factors not captured in the FRAX model (e.g., frailty, falls, vitaminD deficiency, increased bone turnover, interval significant decline in bone density) andpossible under- or over-estimation of fracture risk by FRAX. Optional alternative screening schedule based on bernice Ambrocio., [place] 2011 for patients with osteopenia (based on hip BMD T-score) is as follows: * advanced osteopenia (T scores -2.00 to -2.49), BMD testing every year * moderate osteopenia (T scores -1.50 to -1.99), BMD testing every 5years mild osteopenia or normal BMD (T scores -1.50 and higher), BMD testingevery 15 years Danis Abraham MD [facility] DXA PROCEDURES Final Result * Hepatitis C Screening (02/20/2017) Pathologist [facility] Hepatitis C Screening Abstracted us Historical Provider HEALTH MAINTENANCE Final Result from Last 3 Months or Most Recently Relevant to Health Maintenance Insurance MEDICARE Advance Directives * Full Code - Confirmed (Latest Code Status on File) Date Activated Date Inactivated Comments 11/05/2024 10:37 AM This code sta tus was ascertained in the following way: Code status discussion: discussion with patient To update the patient's code status, place a code status order. Do not modify or discontinue any currently active code status orders. Care Teams Negotiator Sales Relationship Specialty Start Date End Date Danis Abraham MD [address] [place] [address] [address] [place], [place] [address] PCP - General 01/08/23
== END 2025-03-24 10:50 | disposition home or self-care (01) ==
LOC: HO.HSMS 09:35
PROVIDERS: PCP Student in an Organized Health Care Education/Training Program; Visit Provider Physician Assistant Medical
DX: R41.89 Other symptoms and signs involving cognitive functions and awareness (principal); R06.83 Snoring; R51.9 Headache, unspecified; G47.19 Other hypersomnia; G47.10 Hypersomnia, unspecified
CPT/HCPCS: 99214; G2211

== ENCOUNTER 2025-03-24 09:35 | Outpatient (REF) | payer MEDICARE, SELFPAY ==
[2025-03-24 18:25] LABS: Estimated Average Glucose 237 mg/dL; Hemoglobin A1c % 9.9 % (<6.0); Total Hemoglobin (HGBA1C) 3780.2021 umol/L
[2025-03-24 18:32] LABS: Hematocrit 43.1 % (37.0-47.0); Mean Corpuscular HGB Conc 32.5 g/dl (31.0-35.0); Mean Corpuscular Volume 95.4 fL (80.0-98.0); PLT CLUMP 1; Red Blood Count 4.52 X10*6/uL (4.20-5.50); Red Cell Distribution Width 14.3 % (11.0-16.0)
[2025-03-24 18:43] LABS: Alanine Aminotransferase 24 U/L (0-31); Albumin Level 4.4 g/dL (3.5-5.0); Alkaline Phosphatase 91 U/L (39-117); Anion Gap 12 (12-20); Aspartate Amino Transferase 33 U/L (5-31); Bilirubin Total 1.6 mg/dL (0.0-1.0); Blood Urea Nitrogen 13 mg/dL (9-16); Calcium 9.6 mg/dL (8.4-10.2); Carbon Dioxide 25 mmol/L (22-29); Chloride 104 mmol/L (96-108); Estimated Glomerular Filt Rate 47; Glucose Random 249 mg/dL (60-115); Potassium 4.3 mmol/L (3.3-5.1); Sodium 137 mmol/L (135-145); Total Protein 7.9 g/dL (6.5-8.0)
[2025-03-24 18:48] LABS: Ferritin 210 ng/mL (10-250); Vitamin D 25-OH Total 39.9 ng/mL (>30)
[2025-03-24 19:04] LABS: Folate 8.9 ng/mL (> or = 4.0); Vitamin B12 491 pg/mL (200-900)
[2025-03-24 19:43] LABS: Platelet Count 169 X10*3/uL (160-400)
[2025-03-27 04:43] LABS: Methylmalonic Acid 148 nmol/L (69-390)
== END 2025-03-24 09:36 | disposition home or self-care (01) ==
LOC: HO.HKASLDS 09:35
PROVIDERS: PCP Student in an Organized Health Care Education/Training Program; Visit Provider Physician Assistant Medical
DX: R41.89 Other symptoms and signs involving cognitive functions and awareness (principal); R06.83 Snoring; G47.10 Hypersomnia, unspecified; G47.19 Other hypersomnia; R53.83 Other fatigue; G47.9 Sleep disorder, unspecified; G30.9 Alzheimer's disease, unspecified; F02.80 Dementia in other diseases classified elsewhere, unspecified severity, without behavioral disturbance, psychotic disturbance, mood disturbance, and anxiety; Z13.1 Encounter for screening for diabetes mellitus
CPT/HCPCS: 36415; 80053; 82306; 82542; 82607; 82728; 82746; 83036; 83090; 83921; 84443; 85027

== ENCOUNTER 2025-03-24 12:50 | Outpatient (REF) | payer MEDICARE, SELFPAY ==
[2025-03-25 17:24] LABS: Homocysteine 14.9 umol/L (< or = 13.4)
== END 2025-03-24 12:51 | disposition home or self-care (01) ==
LOC: HO.LAB 12:50
PROVIDERS: PCP Student in an Organized Health Care Education/Training Program; Visit Provider Physician Assistant Medical
DX: Z13.89 Encounter for screening for other disorder (principal)
CPT/HCPCS: 83090

== ENCOUNTER → 2025-04-07 19:30 | Outpatient (REF) | payer MEDICARE, SELFPAY ==
--- OUTSIDE RECORDS SUMMARY | 2025-04-07 22:00 | XMS_ITS | Clinical Summary ---
Author Organization 175 [facility] Address [address] [place] [address] Phone Care Team Providers Care Flight Crew Scheduler Name Role Phone Danis Abraham MD Primary Care Provider [phone] Allergies Active Allergy Reactions Criticality Noted Date [...] complication, without long-term current use of insulin ([facility] V24, [facility] V28) 07/04/2023 Glaucoma 11/22/2017 Overview (09/01/2024): Opth (11/22/17) Primary osteoarthritis of both knees 11/08/2017 Spondylosis of lumbosacral r egion without myelopathy or radiculopathy 11/08/2017 CKD (chronic kidney disease) stage 2, GFR 60-89 ml/min 12/31/2012 Overview (09/01/2024): Renal (06/03/18): stable, does not require further intervention. Nephrology (11/07/17): Seen by Dr. oRbin Hutson. Nuclear sclerosis 12/31/2012 Torn rotator cuff 04/19/2009 Overview (09/01/2024): Partial; 2006 Diverticulitis of colon without hemorrhage 01/28 Overview (09/01/2024): Incidental finding at colonoscopy. Asthma 04/02/2007 Intramural leiomyoma of uterus 04/02/2007 Encounters Date Type Department Care Team Description 02/23/2025 Telephone Adult Medicine [address] [phone] Tawana Torres, PharmD Reschedule 02/15/2025 8:45 AM EDT Office Visit Orthopedic Surgery - [place] [address] [facility] [address] [place] [phone] Reji Mayer DPM Controlled type 2 diabetes with neuropathy ([facility] V24, [facility] V28) (Primary Dx); Pain in toes of [...] BILIARY TRACT; COMMENT: neg COLONOSCOPY 10/20/03 PROCEDURE: OK COLONOSCOPY STOMA DX INCLUDING COLLJ SPEC SPX; COMMENT: Jay; neg; R 5 y COLONOSCOPY 11/04/08 PROCEDURE: OK COLONOSCOPY STOMA DX INCLUDING COLLJ SPEC SPX; [...] complication, without long-term current use of insulin ([facility] V24, [facility] V28) 07/04/2023 DX:Type 2 diabetes mellitus without complication, without long-term current use of insulin ([facility]) Functional dyspepsia DX:Function al dyspepsia Family history [...] 103 11/05/2024 10:05 AM EST Temperature 36.6 C (97.9 F) 11/05/2024 10:05 AM EST Respiratory Rate - - Oxygen Saturation 98% 11/05/2024 10:05 AM EST Inhaled Oxygen Concentration - - Weight 76.2 kg (168 lb) 02/15/2025 9:20 AM EDT Height 162.6 cm (5' 4.02 ) 02/15/2025 9:20 AM ED T Body Mass Index 28.82 02/15/2025 9:20 AM EDT Plan of Treatment Upcoming Encounters Date Type Department Care Team (Late st Contact Info) Description 05/05/2025 10:30 AM EDT Office Visit Internal Medicine - [place] [facility] [address] [place] [address] Danis Abraham MD 175 [facility] [address] [place] [address] 05/11/2025 8:30 AM EDT Medication Management Adult Medicine [facility] [address] [place] [phone] Tawana Torres, PharmD [address] [place] [address] Health Maintenance Due Date Last Done Comments Diabetes: Annual Foot Exam 1955 Diabetes: Annual Retina Eye Exam 1955 Zoster Vaccines (1 of 2) 01/26/2014 12/01/2013 DTaP,Tdap,and Td Vaccines (2 - Td or Tdap) 04/28/2018 04/28/2008 RSV Immunization Adult Patients (1 - 1-dose 75+ series) 2022 COVID-19 Vaccine ( - season) 2024 11/08/2023, 03/09/2021, 02/16/2021 Diabetes: Blood [...] Additional history exists Breast Cancer Screening Discontinued 08/13/20, 08/13/2024, 08/08/2023, Additional history exists Influenza Vaccine [...] complication, without long-term current use of insulin ([facility] V24, [facility] V28) COMPREHENSIVE METABOLIC PANEL Routine 11/05/2024 11:03 AM EST Medicare annual wellness visit, subsequent HEMOGLOBIN A1C Routine 11/05/2024 11:03 AM EST Medicare annual wellness visit, subsequent Type 2 diabetes mellitus without complication, without long-term current use of insulin ([facility] V24, [facility] V28) LIPID PANEL WITH REFLEX TO DIRECT [...] LAB CHEMISTRY METHOD 11/05/2024 3:33 PM EST [facility] Triglycerides 95 0 - 150 mg/dL LAB CHEMISTRY METHOD 11/05/2024 3:33 PM [facility] HDL 70 >=40 mg/dL LAB CHEMISTRY METHOD 11/05/2024 3:33 PM [facility] LDL Calculated 74 0 - 100 mg/dL LAB CHEMISTRY METHOD 11/05/2024 3:33 PM EST [facility] VLDL Cholesterol Lucio 19 mg/dL LAB CHEMISTRY METHOD 11/05/2024 3:33 PM [facility] Non HDL Chol. (LDL+VLDL) 93 <145 mg/dL LAB CHEMISTRY METHOD 11/05/2024 3:33 PM [facility] Chol/HDL Ratio 2.3 0.0 - 4.4 LAB CHEMISTRY METHOD 11/05/2024 3:33 PM [facility] Blood Venous blood specimen / Unknown Venipuncture / Unknown 11/05/2024 11:03 AM EST 11/05/2024 11:03 AM EST Danis Abraham MD LAB BLOOD ORDERABLES Final Resul t [facility] [address] [place] [address], * (ABNORMAL) Microalbumin creatinine urine ratio (11/05/2024 11:03 AM EST) Creatinine, Urine 561.0 mg/dL LAB CHEMISTRY METHOD 11/05/2024 3:08 PM [facility] Comment:Results verified by repeat testing Microalb, Ur 69.9(H) 0.0 - 29.0 mg/L LAB CHEMISTRY METHOD 11/05/2024 3:08 PM [facility] Microalb/Crea t Ratio 12 <30 mg/g creat LAB CHEMISTRY METHOD 11/05/2024 3:08 PM EST [facility] Urine Urine specimen from urethra / Unknown Non-blood Collection / Unknown 11/05/2024 11:03 AM EST 11/05/2024 11:03 AM EST Danis Abraham MD LAB URINE ORDERABLES Final Resul t Performing Organization Address City/[facility]/ZIP Co de Phone Number [facility] [address] [place] [address], [place] [phone] * (ABNORMAL) Hemoglobin A1c (11/05/2024 11:03 AM EST) Hemoglobin A1C 9.4(H) <6.5 % LAB CHEMISTRY METHOD 11/05/2024 9:07 PM EST [facility] Mean Bld Glu Estim. 223 mg/dL LAB CHEMISTRY METHOD 11/05/2024 9:07 PM [facility] Blood Venous blood specimen / Unknown Venipuncture / Unknown 11/05/2024 11:03 AM EST 11/05/2024 11:03 AM EST Danis Abraham MD LAB BLOOD ORDERABLES Final Resul t Performing Organization Address [facility]/ZIP Co de Phone Number [facility] [address] [place] [address], [place] [phone] * (ABNORMAL) Comprehensive metabolic panel (11/05/2024 11:03 AM EST) Sodium 138 133 - 145 mmol/L LAB CHEMISTRY METHOD 11/05/2024 3:33 PM EST [facility] Potassium 4.1 3.5 - 5.5 mmol/L LAB CHEMISTRY METHOD 11/05/2024 3:33 PM EST [facility] Chloride 105 96 - 110 mmol/L LAB CHEMISTRY METHOD 11/05/2024 3:33 PM EST [facility] CO2 25 21 - 32 mmol/L LAB CHEMISTRY METHOD 11/05/2024 3:33 PM [facility] Anion Gap 8 3 - 11 LAB CHEMISTRY METHOD 11/05/2024 3:33 PM [facility] Glucose 256(H) 70 - 100 mg/dL LAB CHEMISTRY METHOD 11/05/2024 3:33 PM [facility] BUN 21 5 - 25 mg/dL LAB CHEMISTRY METHOD 11/05/2024 3:33 PM [facility] Creatinine 1.65(H) 0.50 - 1.10 mg/dL LAB CHEMISTRY METHOD 11/05/2024 3:33 PM [facility] eGFR 32(L) >=60 mL/min/1. 73m2 LAB CHEMISTRY METHOD 11/05/2024 3:33 PM [facility] Comment:Calculation based on the Chronic Kidney Disease Epidemiology Collaboration (CKD-EPI) equation refit without adjustment for race. BUN/Creatinine Ratio 12.7 LAB CHEMISTRY METHOD 11/05/2024 3:33 PM [facility] Calcium 9.7 8.5 - 10.5 mg/dL LAB CHEMISTRY METHOD 11/05/2024 3:33 PM [facility] AST (SGOT) 18 10 - 42 unit/L LAB CHEMISTRY METHOD 11/05/2024 3:33 PM [facility] ALT (SGPT) 26 10 - 60 unit/L LAB CHEMISTRY METHOD 11/05/2024 3:33 PM [facility] Alkaline Phosphatase 89 42 - 121 unit/L LAB CHEMISTRY METHOD 11/05/2024 3:33 PM [facility] Total Protein 8.1(H) 6.0 - 8.0 g/dL LAB CHEMISTRY METHOD 11/05/2024 3:33 PM [facility] Albumin 4.2 3.2 - 5.0 g/dL LAB CHEMISTRY METHOD 11/05/2024 3:33 PM [facility] Total Bilirubin 1.5(H) 0.0 - 1.4 mg/dL LAB CHEMISTRY METHOD 11/05/2024 3:33 PM EST [facility] Blood Venous blood specimen / Unknown Venipuncture / Unknown 11/05/2024 11:03 AM EST 11/05/2024 11:03 AM EST Danis Abraham MD LAB BLOOD ORDERABLES Final Resul t [facility] ([facility]) [facility] [address] [place] [address], * SCREENING MAMMOGRAPHY BI 2-VIEW BREAST INC [...] Breast cancer risk category Low (<15%) Location: [facility], [address] [place] [address], [place], [address], [phone] Procedure Note Susy Hill MD - 09/07/2024 This is a summary report. The complete report is available in thepatient's medical record. If you cannot access the medical record, pleasecontact the sending organization for a detailed fax or copy. Full field digital screening tomosynthesis mammography, reviewed with Kashif compared to previous mammogram of 08/08/2023. The [...] Breast cancer risk category Low (<15%) Location: [facility], [address] [place] [address], [address], [phone] Nemo Forbes CN IMG XR PROCEDURES Final Result * Colonoscopy (01/14/2024) Colonoscopy Abstracted, no interpretation Anatomical Region Laterality Modality Other [facility] Provider MD HEALTH MAINTENANCE Final Result * Falls Risk Assessment (10/28/2023) [facility] Falls Risk Assessment Abstracted [facility] Provider MD HEALTH MAINTENANCE Final Result * Depression Screening (10/28/2023) Pathologist [facility] Depression Screening Abstracted [facility] Provider MD HEALTH MAINTENANCE Final Result * DXA BONE DENSITY STUDY 1+ SITS AXIAL SKEL (08/22/2023 2:39 PM EST) Anatomical Region Laterality Modality Bone Densitometr y 06/11/2023 11:4 1 AM EDT Narrative 08/22/2023 2:53 PM EST BONE DENSITY (DEXA) Lumbar Spine T-score is 0.0. (SD relative to 20-29 y/o adult) Z-score is 1.7. (SD relative to age matched peers) This is considered normal by WHO criteria. Left Hip T-score is -0.8. Z-score is 0.3. This is considered normal by WHO criteria. IMPRESSION: This patient is considered to have normal bone density by WHO criteria. The [facility] Department of Internal Medicine recommends using National [...] alternative screening schedule based on bernice Ambrocio., [facility] November 01, 2011 for patients with osteopenia [...] normal bone density by WHO criteria. The [facility] Department of Internal Medicinerecommends using National Osteoporosis [...] alternative screening schedule based on bernice Ambrocio., [facility] for patients with osteopenia (based on hip BMD T-score) is as follows: * advanced osteopenia (T scores -2.00 to -2.49), BMD testing every year * moderate osteopenia (T scores -1.50 to -1.99), BMD testing every 5years mild osteopenia or normal BMD (T scores -1.50 and higher), BMD testingevery 15 years Danis Abraham MD IM DXA PROCEDURES Final Result * Hepatitis C Screening (02/20/2017) [facility] Hepatitis C Screening Abstracted Historical Provider HEALTH MAINTENANCE Final Result from [...] currently active code status orders. Care Teams Flight Crew Scheduler Relationship Specialty Start Date End Date Danis Abraham MD [address] [place] [address] PCP - General 01/08/23
== END ==
LOC: HO.SL 19:30
PROVIDERS: PCP Student in an Organized Health Care Education/Training Program; Visit Provider Physician Assistant Medical
DX: G47.19 Other hypersomnia (principal); R06.83 Snoring
CPT/HCPCS: 95810

== ENCOUNTER → 2025-04-07 22:48 | Outpatient (BNV) | payer MEDICARE, SELFPAY | PROVIDERS: PCP Student in an Organized Health Care Education/Training Program; Visit Provider Psychiatry & Neurology Neurology | DX: R06.83 Snoring (principal) | CPT/HCPCS: 95810 ==

== ENCOUNTER 2025-06-25 09:22 | Outpatient (AMB) | payer MEDICARE, SELFPAY ==
--- NOTE | 2025-06-25 09:37 | A.OFFVIS_ITS ---
Vital Signs 06/25/25 09:39 Height 5 ft 2.5 in Weight 174 lb BMI 31.3 BP 122/70 Blood Pressure Location Rt brachial Position Sitting Pulse 78 Pulse Source Pulse Oximeter Pulse Oximetry (%) 98 Oxygen Delivery Method Room Air Intake Visit Reasons: 3m follow up Intake Note: Patient presents follow up Dementia/Headache medication. Labs/PSG in chart(AHI- <1, ROBBI-91%). Accompanied by: Daughter Allergies diphtheria,pertussis (acellular),te (From Adacel(Tdap Adolesn/Adult)(PF)) Allergy (Mild, Verified 06/25/25 09:43) Unknown metronidazole Allergy (Mild, Verified 06/25/25 09:43) Unknown pentazocine (From Talwin) Allergy (Mild, Verified 06/25/25 09:43) Unknown HPI Comments Details: 79y/o r. handed female comes for evaluation of cognitive issues. She is accompanied by her daughter Vickie who helps with history. HST 06/2024 was inconclusive AHI is 3.4, and OAI 1.6, oxygen Nadirs to 82%. MRI 06/2024 volume loss in hippocami and neuroquant reviewed with patient. She has CKD stage 4 monitored by her consumer electronic retail specialist. She used to work as a geriatrics nurse. In 2019 her family started noticing she has trouble recalling words and trouble with conversations, difficulty making decisions, poor judgment. Misplacing things around the house etc. Now she is more delusional, gets confused with past occurrences and timelines. Her conversations tend to be more congruent recently per daughter. She snores at night, has irregular sleep patterns and is chronically fatigued. She can retrace her steps and find items, but needs help cues, reminders and lists to prompt her memory. She has + fh/o Alzheimers, mother and father, both passed in their 90s. She is independent in all her ADLs. She no longer is driving, climbing stairs, she is looking for a one bedroom apt, one level. MMSE 26/30 today. She was diagnosed with diabetes, and blood sugars improved today she is on 1000mg PO BID per endocrine, will be starting the forixgia. Mood is stable, she does crossword puzzles and word finders games daily. She has blurry vision and headaches 2-3 times a week but go away in 30 min with diet, naps or increases water intake which usually helps to alleviate the headache. She started walking with her family and friends and this is challenging for her as she is an introvert and prefers to be in solitude. [facility] Medical History Hypersomnia Snoring Cognitive change Chronic kidney disease Fibroids Asthma Lumbar spondylosis Arthritis Glaucoma Diabetes Surgical History H/O colonoscopy Social History Household Members: Family Housing: House Alcohol intake: current Comment: seldom Patient Tobacco Use Status: Never used Tobacco Physical Exam Vital Signs: Last Vital Signs Pulse 78 06/25/25 09:39 BP 122/70 06/25/25 09:39 Pulse Ox 98 06/25/25 09:39 Oxygen Delivery Method Room Air 06/25/25 09:39 BMI result Body Mass Index 31.3 Const General: cooperative, comfortable and no acute distress Nutritional Appearance: average body habitus Orientation/consciousness: patient oriented x3 Eyes Pupils: Equal, round and reactive pupils present Resp Effort & Inspection: normal respiratory effort and able to speak in complete sentences Neuro General: patient oriented x3 and moves all extremities Cranial nerves: Yes Facial sensation intact/muscles of mastication intact, Yes Equal, round and reactive pupils present, Yes Normal accommodation reflex present, Yes Normal facial strength present, Yes Ability to bilaterally rotate head present and Yes Ability to bilaterally elevate shoulders present Gait exam (Neuro): Normal gait present Motor exam (neuro): 5/5 motor strength present throughout Psych Appearance: well kempt Speech and movement: Slowed movement present (Neuro) Affect: normal affect Attitude: cooperative Thought process: Normal thought process present Thought content: Normal thought content present Results Reviewed Results Reviewed: HST MRI fronto-temoporal volume loss Assessment & Plan Assessment & Plan (1) Excessive daytime sleepiness: Code(s): G47.19 - Other hypersomnia Category: Medical (2) Cognitive change: Comment: mild cognitive impairment/ alzheimers not LBD Code(s): R41.89 - Other symptoms and signs involving cognitive functions and awareness Category: Medical (3) Loud snoring: Code(s): R06.83 - Snoring Category: Medical (4) Frequent headaches: Code(s): R51.9 - Headache, unspecified Category: Medical (5) Hypersomnia: Code(s): G47.10 - Hypersomnia, unspecified Category: Medical (6) Snoring: Code(s): R06.83 - Snoring Category: Medical Plan 06/2024 MRI reviewed results with patient regarding changes on MRI Baseline NeuroQuant. Hippocampal volumes have an age-adjusted normative percentile of 5. HST reviewed AHI <4 and O2 robbi 82%, will send for PSG as patient has excessive daytime fatigue. CKD start cpap therapy as pt has cognitive decline Cognitive Decline/ Alzheimers early onset.MMSE Will send her for PET Scan to determine next steps in therapy along with APO E4 testing for leqembi or kisunla therapy? Continue Memantine 28mg po daily. Continue to socialize, do puzzles, walking daily for 15 - 30 min as tolerable and drinking lots of water. Labs are pending vit d is low, take a daily vit d, refer to pcp re: A1c and blood glucose. Headaches sumatriptatn 50mg po as needed for acute headaches, may repeat in 2hours, not to exceed 100mg in a 24 hour period. f/u in 3mons. Patient Instructions: Sleep Hygiene provided: set a scheduled bedtime and wake time to help regulate the circadian rhythm and balance the release of pituitary hormones. Sleep in a dark room, temperatures below 68 degrees, and no devices n bed. Limit caffeinated products 6 hours prior to bed, and limit fluids 2-4 hours prior to bed. Gentle night yoga, diffusing essential oils, and playing soft music can be relaxing. Coding Level of Care Code Est Pt Level 4 (56187) Diagnoses Excessive daytime sleepiness G47.19 Cognitive change R41.89 Loud snoring R06.83 Frequent headaches R51.9 Hypersomnia G47.10 Snoring R06.83
[2025-06-25 09:39] VITALS: BP 122/70; PULSE 78; O2SAT 98; BMI 31.3
--- OUTSIDE RECORDS SUMMARY | 2025-06-25 10:27 | XMS_ITS | Clinical Summary ---
Author Organization 175 [facility] Address [address] [place] [address] Phone Care Team Providers Care United [place] Marshal Name Role Phone Danis Abraham MD Primary Care Provider [phone] Allergies Active Allergy Reactions Criticality Noted Date Comments Diph,Pertus(Acel),Tet Ped (Pf) 06/10/2008 Arm swelled size of orange Metronidazole Itching 01/29/2008 Pentazocine Lactate Rash 07/04/2006 Medications cholecalciferol (VITAMIN D-3) 50 mcg (2,000 unit) tablet Take 1 Tablet by mouth daily. 3 Active diclofenac (VOLTAREN) 1 % topical gel Apply 1 g topically 3 times daily as needed (pain). 4 Active famotidine (PEPCID) 20 mg tablet Take 1 Tablet by mouth 2 times daily as needed for Heartburn. 3 Active memantine (NAMENDA) 10 mg tablet Take 1 tablet (10 mg total) by mouth 2 (two) times a day. Active ammonium lactate (AmLactin) 12 % lotion Apply topically if needed for dry skin. 400 g 2 5 12/15/19 26 Active metFORMIN (GLUCOPHAGE) 1,000 mg tablet Take 1 tablet (1,000 mg total) by mouth 2 (two) times a day with meals. 60 each 11 5 05/05/20 26 Active glipiZIDE (Glucotrol XL) 5 mg 24 hr tablet Take 1 tablet (5 mg total) by mouth 1 (one) time each day. Do not crush, chew, or split. 30 each 05/05/20 Active blood-glucose,r eceiver,cont (FreeStyle Giovanna 3 [place]) misc 6 (six) times a day. 1 each 5 Active blood-glucose sensor (FreeStyle Giovanna 3 Plus Sensor) device 1 EA 6 (six) times a day. Box = Kit = EA 2 each 5 11/01/19 Active Active Problems Problem Noted Date Diagnosed Date Type 2 diabetes mellitus wit hout complication, without long-term current use of insulin ([facility] V24, [facility] V28) 07/04/2023 Glaucoma 11/22/2017 Overview (09/01/2024): Opth (11/22/17) Primary osteoarthritis of both knees 11/08/2017 Spondylosis of lumbosacral r egion without myelopathy or radiculopathy 11/08/2017 CKD (chronic kidney disease) stage 2, GFR 60-89 ml/min 12/31/2012 Overview (09/01/2024): Renal (06/03/18): stable, does not require further intervention. Nephrology (11/07/17): Seen by Dr. Robin Hutson. Nuclear sclerosis 12/31/2012 Torn rotator cuff 04/19/2009 Overview (09/01/2024): Partial; 2006 Diverticulitis of colon without hemorrhage 01/28 Overview (09/01/2024): Incidental finding at colonoscopy. Asthma 04/02/2007 Intramural leiomyoma of uterus 04/02/2007 Encounters Date Type Department Care Team Description 05/11/2025 Telephone Adult Medicine [address] [address] Tawana Torres, Abhinav 05/05/2025 10:30 AM EDT Office Visit Internal Medicine - [address] [place] [address] Danis Abraham MD Type 2 diabetes mellitus without complication, without long-term current use of insulin ([facility] V24, [facility] V28) (Primary Dx); CKD (chronic kidney disease) stage 2, GFR 60-89 ml/min; Mild intermittent asthma without complication from Last 3 Months Immunizations Name Administration [...] cecal diverticulosis; repeat in 5 years COLONOSCOPY 3.28.14 PROCEDURE: COLOREC CANC SCRN,COLONOSCPY HI RISK; COMMENT: [...] complication, without long-term current use of insulin ([facility]/HCC V24, CMS/HCC V28) 07/04/2023 DX:Type 2 diabetes mellitus without complication, without long-term current use of insulin ([facility]) Functional dyspepsia DX:Function al dyspepsia Family history [...] Sign Reading Time Taken Comments Blood Pressure 132/76 05/05/2025 10:34 AM EDT Pulse 84 05/05/2025 10:34 AM EDT Temperature 36.6 C (97.9 F) 11/05/2024 10:05 AM EST Respiratory Rate - - Oxygen Saturation 98% 05/05/2025 10:34 AM EDT Inhaled Oxygen Concentration - - Weight 76.7 kg (169 lb) 05/05/2025 10:34 AM EDT Height 162.6 cm (5' 4 ) 05/05/2025 10:34 AM EDT Body Mass Index 29.01 05/05/2025 10:34 AM EDT Plan of Treatment Upcoming Encounters Date Type Department Care Team (Late st Contact Info) Description 07/06/2025 11:00 AM EDT Medication Management Adult Medicine [facility] [address] [place] [address] Tawana Torres, PharmD [address] [place] [address] 08/09/2025 10:30 AM EDT Office Visit Internal Medicine - [place] [address] [phone] Danis Abraham MD [address] [phone] Health Maintenance Due Date Last Done Comments Diabetes: Annual Foot Exam 1955 Diabetes: Annual Retina Eye Exam 1955 Zoster Vaccines (1 of 2) 01/26/2014 12/01/2013 DTaP,Tdap,and Td Vaccines (2 - Td or Tdap) 04/28/2018 04/28/2008 RSV Immunization Adult Patients (1 - 1-dose 75+ series) 2022 Diabetes: Blood Sugar Control Test (HGBA1C) 05/05/2025 11/05/2024, 04/29/2024, 04/29/2024 COVID-19 Vaccine ( - season) 2025 11/08/2023, 03/09/2021, 02/16/2021 Influenza Vaccine (#1) 2025 , 11/27/2023, 07/11/2023, Additional history exists Diabetes: Annual Urine Albumin-Creatinine Ratio (uACR) 11/05/2025 [...] Discontinued 08/13/20, 08/13/2024, 08/08/2023, Additional history exists Depression Screening Completed 11/05/2024, 10/28/19 24 HIB Vaccines Aged Out No longer eligi [...] complication, without long-term current use of insulin ([facility] V24, [facility] V28) COMPREHENSIVE METABOLIC PANEL Routine 11/05/2024 11:03 AM EST Medicare annual wellness visit, subsequent HEMOGLOBIN A1C Routine 11/05/2024 11:03 AM EST Medicare annual wellness visit, subsequent Type 2 diabetes mellitus without complication, without long-term current use of insulin ([facility] V24, [facility] V28) LIPID PANEL WITH REFLEX TO DIRECT [...] LAB CHEMISTRY METHOD 11/05/2024 3:33 PM EST [facility] Triglycerides 95 0 - 150 mg/dL LAB CHEMISTRY METHOD 11/05/2024 3:33 PM [facility] HDL 70 >=40 mg/dL LAB CHEMISTRY METHOD 11/05/2024 3:33 PM [facility] LDL Calculated 74 0 - 100 mg/dL LAB CHEMISTRY METHOD 11/05/2024 3:33 PM [facility] VLDL Cholesterol Lucio 19 mg/dL LAB CHEMISTRY METHOD 11/05/2024 3:33 PM [facility] Non HDL Chol. (LDL+VLDL) 93 <145 mg/dL LAB CHEMISTRY METHOD 11/05/2024 3:33 PM [facility] Chol/HDL Ratio 2.3 0.0 - 4.4 LAB CHEMISTRY METHOD 11/05/2024 3:33 PM [facility] Blood Venous blood specimen / Unknown Venipuncture / Unknown 11/05/2024 11:03 AM EST 11/05/2024 11:03 AM EST Danis Abraham MD LAB BLOOD ORDERABLES Final Resul t [facility] [address] [place] [address], * (ABNORMAL) Microalbumin creatinine urine ratio (11/05/2024 11:03 AM EST) Creatinine, Urine 561.0 mg/dL LAB CHEMISTRY METHOD 11/05/2024 3:08 PM [facility] Comment:Results verified by repeat testing Microalb, Ur 69.9(H) 0.0 - 29.0 mg/L LAB CHEMISTRY METHOD 11/05/2024 3:08 PM [facility] Microalb/Crea t Ratio 12 <30 mg/g creat LAB CHEMISTRY METHOD 11/05/2024 3:08 PM EST [facility] Urine Urine specimen from urethra / Unknown Non-blood Collection / Unknown 11/05/2024 11:03 AM EST 11/05/2024 11:03 AM EST Danis Abraham MD LAB URINE ORDERABLES Final Resul t Performing Organization Address City/[facility]/ZIP Co de Phone Number [facility] [address] [place] [address], [place] [phone] * (ABNORMAL) Hemoglobin A1c (11/05/2024 11:03 AM EST) Hemoglobin A1C 9.4(H) <6.5 % LAB CHEMISTRY METHOD 11/05/2024 9:07 PM [facility] Mean Bld Glu Estim. 223 mg/dL LAB CHEMISTRY METHOD 11/05/2024 9:07 PM [facility] Blood Venous blood specimen / Unknown Venipuncture / Unknown 11/05/2024 11:03 AM EST 11/05/2024 11:03 AM EST Danis Abraham MD LAB BLOOD ORDERABLES Final Resul t Performing Organization Address [facility] Co de Phone Number [facility] [address] [place] [address], [place] [phone] * (ABNORMAL) Comprehensive metabolic panel (11/05/2024 11:03 AM EST) Sodium 138 133 - 145 mmol/L LAB CHEMISTRY METHOD 11/05/2024 3:33 PM EST [facility] Potassium 4.1 3.5 - 5.5 mmol/L LAB CHEMISTRY METHOD 11/05/2024 3:33 PM EST [facility] Chloride 105 96 - 110 mmol/L LAB CHEMISTRY METHOD 11/05/2024 3:33 PM EST [facility] CO2 25 21 - 32 mmol/L LAB CHEMISTRY METHOD 11/05/2024 3:33 PM [facility] Anion Gap 8 3 - 11 LAB CHEMISTRY METHOD 11/05/2024 3:33 PM [facility] Glucose 256(H) 70 - 100 mg/dL LAB CHEMISTRY METHOD 11/05/2024 3:33 PM [facility] BUN 21 5 - 25 mg/dL LAB CHEMISTRY METHOD 11/05/2024 3:33 PM [facility] Creatinine 1.65(H) 0.50 - 1.10 mg/dL LAB CHEMISTRY METHOD 11/05/2024 3:33 PM [facility] eGFR 32(L) >=60 mL/min/1. 73m2 LAB CHEMISTRY METHOD 11/05/2024 3:33 PM [facility] Comment:Calculation based on the Chronic Kidney Disease Epidemiology Collaboration (CKD-EPI) equation refit without adjustment for race. BUN/Creatinine Ratio 12.7 LAB CHEMISTRY METHOD 11/05/2024 3:33 PM [facility] Calcium 9.7 8.5 - 10.5 mg/dL LAB CHEMISTRY METHOD 11/05/2024 3:33 PM [facility] AST (SGOT) 18 10 - 42 unit/L LAB CHEMISTRY METHOD 11/05/2024 3:33 PM [facility] ALT (SGPT) 26 10 - 60 unit/L LAB CHEMISTRY METHOD 11/05/2024 3:33 PM [facility] Alkaline Phosphatase 89 42 - 121 unit/L LAB CHEMISTRY METHOD 11/05/2024 3:33 PM [facility] Total Protein 8.1(H) 6.0 - 8.0 g/dL LAB CHEMISTRY METHOD 11/05/2024 3:33 PM [facility] Albumin 4.2 3.2 - 5.0 g/dL LAB CHEMISTRY METHOD 11/05/2024 3:33 PM [facility] Total Bilirubin 1.5(H) 0.0 - 1.4 mg/dL LAB CHEMISTRY METHOD 11/05/2024 3:33 PM EST [facility] Blood Venous blood specimen / Unknown Venipuncture / Unknown 11/05/2024 11:03 AM EST 11/05/2024 11:03 AM EST Danis Abraham MD LAB BLOOD ORDERABLES Final Resul t [facility] [address] [place] [address], * SCREENING MAMMOGRAPHY BI 2-VIEW BREAST INC [...] Breast cancer risk category Low (<15%) Location: [facility], [address] [place] [address], [place], [address], [phone] Procedure Note Susy Hill MD - 09/07/2024 [...] Breast cancer risk category Low (<15%) Location: [facility], [address] [place] [address], [address], [phone] Nem[facility] RG IMG XR PROCEDURES Final Result * Colonoscopy (01/14/2024) Pathologist [facility] Colonoscopy Abstracted, no interpretation Anatomical Region Laterality Modality Other [facility] HEALTH MAINTENANCE Final Result * Falls Risk Assessment (10/28/2023) [facility] Falls Risk Assessment Abstracted [facility] HEALTH MAINTENANCE Final Result * Depression Screening (10/28/2023) [facility] Depression Screening Abstracted Result [facility] HEALTH MAINTENANCE Final Result * DXA BONE [...] normal bone density by WHO criteria. The [facility] Department of Internal Medicine recommends using [...] alternative screening schedule based on bernice Ambrocio., [facility] November 01, 2011 for patients with osteopenia [...] normal bone density by WHO criteria. The [facility] Department of Internal Medicinerecommends using National [...] alternative screening schedule based on bernice Ambrocio., NEJMJanuary 2011 for patients with osteopenia (based on hip BMD T-score) is as follows: * advanced osteopenia (T scores -2.00 to -2.49), BMD testing every year * moderate osteopenia (T scores -1.50 to -1.99), BMD testing every 5years mild osteopenia or normal BMD (T scores -1.50 and higher), BMD testingevery 15 years Danis Abraham MD [facility] DXA PROCEDURES Final Result * Hepatitis C Screening (02/20/2017) [facility] Hepatitis C Screening Abstracted Historical Provider HEALTH [...] currently active code status orders. Care Teams United [place] Marshal Relationship Specialty Start Date End Date Danis Abraham MD [address] [place] [phone] PCP - General 01/08/23
--- OUTSIDE RECORDS SUMMARY | 2025-06-25 10:27 | XMS_ITS | Encounter Summary ---
Author Organization [facility] Address [address] [place] [address] Care Team Providers Care Remelt Furnace Expediter Name Role Phone Danis Abraham MD Primary Care Provider [phone] Encounter Details Date Type Department Care Team ([facility] Contact Info) Description 05/11/2025 Telephone Adult Medicine [facility] [address] [place] [phone] Tawana Torres PharmD [address] [place] [phone] Social History Tobacco Use Types Packs/Day Years Used Date Smoking Tobacco: Never Smokeless Tobacco: Never Alcohol Use Standard Drinks/Week Comments Yes 0 (1 standard drink = 0.6 oz pur e alcohol) Comments Unknown Sex and Gender Information Value Date Recorded Sex Assigned at Not on file Legal Sex Female 9:19 PM EST Gender Identity Not on file Sexual Orientation Not on file documented as of this encounter Progress Notes * Tawana Torres PharmD - 05/11/2025 9:[address] Abraham, Patient is due for repeat labs. Can you sign the following orders? Thanks Tawana documented in this encounter Plan of Treatment Upcoming Encounters Date Type Department Care Team ([facility] Contact Info) Description 07/06/2025 11:00 AM EDT Medication Management Adult Medicine [facility] [address] [place] [address] Tawana Torres, JesusD [address] [place], [place] 08/09/2025 10:30 AM EDT Office Visit Internal Medicine - [place] [address] [phone] Danis Abraham MD [address] [place] [phone] documented as of this encounter Visit Diagnoses Not on filedocumented in this encounter Additional Health Concerns Assessment Noted Time PHQ-9 Depression Total Score: 0 11/05/19 25 10:29 AM EST documented as of this encounter Care Teams Remelt Furnace Expediter Relationship Specialty Start Date End Date Danis Abraham MD [address] [place] [phone] PCP - General 01/08/23 documented as of this encounter
--- OUTSIDE RECORDS SUMMARY | 2025-06-25 10:27 | XMS_ITS ---
Author Name RUSTP Organization Unknown Care Team Organization Name Specialty Phone Email Start Date End Da te [facility] 06/02/2025 [facility] Danis Abraham Primary Care 09/25/2023 024
== END 2025-06-25 10:25 | disposition home or self-care (01) ==
LOC: HO.HSMS 09:23
PROVIDERS: PCP Student in an Organized Health Care Education/Training Program; Visit Provider Physician Assistant Medical
DX: G47.19 Other hypersomnia (principal); R41.89 Other symptoms and signs involving cognitive functions and awareness; R06.83 Snoring; R51.9 Headache, unspecified; G47.10 Hypersomnia, unspecified
CPT/HCPCS: 99214

== ENCOUNTER → 2025-06-25 09:22 | Outpatient (BNVA) | payer MEDICARE, SELFPAY | PROVIDERS: PCP Student in an Organized Health Care Education/Training Program; Visit Provider Physician Assistant Medical | DX: R06.83 Snoring (principal); G47.19 Other hypersomnia; R41.89 Other symptoms and signs involving cognitive functions and awareness; R51.9 Headache, unspecified; G47.10 Hypersomnia, unspecified | CPT/HCPCS: 99212 ==

== ENCOUNTER 2025-09-22 12:53 | Outpatient (AMB) | payer MEDICARE, SELFPAY ==
--- NOTE | 2025-09-22 12:53 | A.OFFVIS_ITS ---
Vital Signs 09/22/25 12:54 Height 5 ft 2.5 in Weight 167 lb BMI 30.1 BP 128/80 Blood Pressure Location Rt brachial Position Sitting Pulse 73 Pulse Source Pulse Oximeter Pulse Oximetry (%) 97 Oxygen Delivery Method Room Air Intake Visit Reasons: f/u w MD Intake Note: Follow up Excessive daytime sleepiness, hypersomnia, loud snoring, cognitive changes and headache Employment Evaluator/Case Manager Required: No Accompanied by: Daughter Allergies diphtheria,pertussis (acellular),te (From Adacel(Tdap Adolesn/Adult)(PF)) Allergy (Mild, Verified 09/22/25 12:54) Unknown metronidazole Allergy (Mild, Verified 09/22/25 12:54) Unknown pentazocine (From Talwin) Allergy (Mild, Verified 09/22/25 12:54) Unknown HPI Comments Details: 79y/o r. handed female comes for follow up of cognitive issues. No change since last visit Her diabetes control is better. She is accompanied by her daughter Vickie who helps with history. HST 06/2024 was inconclusive AHI is 3.4, and OAI 1.6, oxygen Nadirs to 82%.PSG was normal MRI 06/2024 volume loss in hippocami and neuroquant reviewed with patient. She has CKD stage 4 monitored by her apartment leasing agent. History form last visit-She used to work as a geriatrics nurse. In 2019 her family started noticing she has trouble recalling words and trouble with conversations, difficulty making decisions, poor judgment. Misplacing things around the house etc. Now she is more delusional, gets confused with past occurrences and timelines. Her conversations tend to be more congruent recently per daughter. She snores at night, has irregular sleep patterns and is chronically fatigued. She can retrace her steps and find items, but needs help cues, reminders and lists to prompt her memory. She has + fh/o Alzheimers, mother and father, both passed in their 90s. She is independent in all her ADLs. She no longer is driving, climbing stairs, she is looking for a one bedroom apt, one level. MMSE 26/30 today. She was diagnosed with diabetes, and blood sugars improved today she is on 1000mg PO BID per endocrine, will be starting the forixgia. Mood is stable, she does crossword puzzles and word finders games daily. She has blurry vision and headaches 2-3 times a week but go away in 30 min with diet, naps or increases water intake which usually helps to alleviate the headache. She started walking with her family and friends and this is challenging for her as she is an introvert and prefers to be in solitude. [facility] Medical History Hypersomnia Snoring Cognitive change Chronic kidney disease Fibroids Asthma Lumbar spondylosis Arthritis Glaucoma Diabetes Surgical History H/O colonoscopy Social History Household Members: Family Housing: House Alcohol intake: current Comment: seldom Patient Tobacco Use Status: Never used Tobacco Physical Exam Vital Signs: Last Vital Signs Pulse 73 09/22/25 12:54 BP 128/80 09/22/25 12:54 Pulse Ox 97 09/22/25 12:54 Oxygen Delivery Method Room Air 09/22/25 12:54 BMI result Body Mass Index 30.1 Orientation What is the (year) (season) (date) (day) (month)?: year, season, date, day and month Where are we (state) (county) (town or city) (hospital) (floor)?: state, county, town or city, hospital/clinic and floor Registration Name of 3 unrelated objects clearly and slowly, then ask patient to repeat all 3 of them. (1st repeat determines score. Make sure they can repeat all three): object 1, object 2 and object 3 Attention & Calculation (CHOOSE ONE) Spell WORLD backwards (DLROW): 5 letters Recall Ask patient to repeat the 3 items from question #3.: object 1, object 2 and object 3 Language Show patient a wristwatch & ask what it is. Repeat for pencil.: watch and pencil Ask the patient to repeat the phrase 'No ifs, ands, or buts' after you.: correct Ask the patient to 'take a piece of paper with their right hand' 'fold paper in half' 'place paper on floor': take paper in right hand, fold paper in half and place paper on floor Print the sentence 'CLOSE YOUR EYES' on a piece. If patient actually closes eyes then score.: followed written direction Ask patient to copy figure of intersecting pentagons exactly. Score if all 10 angles & 2 intersects are included.: all 10 angles present & 2 are intersected Score Score: 29 Assessment & Plan Assessment & Plan (1) Cognitive change: Comment: mild cognitive impairment- Vascular Apo E3/E2 - Lower risk , PET Amyloid - negative Code(s): R41.89 - Other symptoms and signs involving cognitive functions and awareness Category: Medical Plan Cognitive Decline/ vascular .MMSE 28/30 Continue Memantine 28mg po daily. Continue to socialize, do puzzles, walking daily for 15 - 30 min as tolerable and drinking lots of water. Vascular risk factors discussed - f/u endocrinology Headaches sumatriptatn 50mg po as needed for acute headaches, may repeat in 2hours, not to exceed 100mg in a 24 hour period. Coding Level of Care Code Est Pt Level 4 (99334) Add On Problem Visit Only Diagnoses Cognitive change R41.89
[2025-09-22 12:54] VITALS: BP 128/80; PULSE 73; O2SAT 97; BMI 30.1
--- OUTSIDE RECORDS SUMMARY | 2025-09-22 19:49 | XMS_ITS | Encounter Summary ---
Author Organization [facility] Address [address] [place] [address] Care Team Providers Care Metal Drawer Name Role Phone Danis Abraham MD Primary Care Provider [phone] Encounter Details Date Type Department Care Team (Late Contact Info) Description 08/10/2025 Results Follow-Up Internal Medicine - [address] [place] [phone] Danis Abraham MD [address] [place] [phone] Social History Tobacco Use Types Packs/Day Years [...] on file documented as of this encounter Ordered Prescriptions Prescription Sig Dispense Quantity Refills Last Filled Start Date End Date pioglitazone (Actos) 30 mg tablet Take 1 tablet (30 mg total) by mouth 1 (one) time each day. 30 each 11 08/10/2025 08/24/2025 documented in this encounter Plan of Treatment Upcoming Encounters Date Type Department Care Team (Late Contact Info) Description 10/27/2025 11:30 AM EST Medication Management Adult Medicine [facility] [address] [place] [address] Tawana Torres, JesusD [address] [place] [address] 11/04/2025 8:30 AM EST Office Visit Internal Medicine - [place] [address] [phone] Danis Abraham MD [address] [place] [phone] 2025 9:00 AM EST Office Visit Orthopedic Surgery - [place] [address] [phone] Reji Mayer DPM [address] [address] Scheduled Orders Name Type Priority Associated Diagnoses Orde r Schedule Hemoglobin A1c Lab Routine Type 2 diabetes mellitus without complication, without long-term current use of insulin ([facility] V24, [facility] V28) Expected: 11/10/2025, Expires: 08/10/2026 documented as of this encounter Visit Diagnoses Diagnosis Type 2 diabetes mellitus without complication, without long-term current use of insulin ([facility] V24, [facility] V28)- Primary documented in this encounter Additional Health Concerns Assessment Noted Time PHQ-9 Depression Total Score: 0 11/05/19 25 10:29 AM EST documented as of this encounter Care Teams Metal Drawer Relationship Specialty Start Date End Date Danis Abraham MD [address] [phone] PCP - General 01/08/23 documented as of this encounter
--- OUTSIDE RECORDS SUMMARY | 2025-09-22 19:49 | XMS_ITS | Clinical Summary ---
Author Organization 175 [facility] Address [address] [place] [address] Phone Care Team Providers Care Reinforced Ironworker Name Role Phone Danis Abraham MD Primary Care Provider [phone] Allergies Active Allergy Reactions Criticality Noted Date [...] 60 each 11 5 05/05/20 26 Active blood-glucose,r eceiver,cont (FreeStyle Giovanna 3 [place]) misc 6 (six) times a day. 1 each 1 5 Active blood-glucose sensor (FreeStyle Giovanna 3 Plus Sensor) device 1 EA 6 (six) times a day. Box = Kit = EA 2 each 5 5 11/01/19 26 Active dapagliflozin propanediol (FARXIGA) 10 mg tablet Take 1 tablet (10 mg total) by mouth 1 (one) time each day. 30 tablet 5 Active SUMAtriptan (IMITREX) 50 mg tablet Take 1 tablet (50 mg total) by mouth 1 (one) time if needed for migraine. 5 Active glipiZIDE (GLUCOTROL) 5 mg tablet Take 1 tablet (5 mg total) by mouth 1 (one) time each day. Take with noon time meal 30 each 2 5 Active pioglitazone (Actos) 30 mg tablet Take 1 tablet (30 mg total) by mouth 1 (one) time each day. 30 each 11 5 08/24/20 25 Discontinu ed(Therapy completed) Active Problems Problem Noted Date Diagnosed Date Type 2 diabetes mellitus wit hout complication, without long-term current use of insulin 07/04/2023 Glaucoma 11/22/2017 Overview (09/01/2024): Opth (11/22/17) [...] Encounters Date Type Department Care Team Description 08/24/2025 Telephone Adult [facility] [address] [place] [phone] Tawana Torres PharmD 08/10/2025 Results Follow-Up Internal Medicine [facility] 175 [facility] [address] [place] [phone] Danis Abraham MD 08/09/2025 10:30 AM EDT Office Visit Internal Medicine [facility] 175 [facility] [address] [place] [phone] Danis Abraham MD Type 2 diabetes mellitus without complication, without long-term current use of insulin ([facility] V24, [facility] V28) (Primary Dx); Migraine without status migrainosus, not intractable, unspecified migraine type 07/14/2025 1:00 PM EDT Office Visit Orthopedic Surgery [facility] 250 [address] [facility] [address] [place] [phone] Reji Mayer DPM Controlled type 2 diabetes with neuropathy ([facility] V24, [facility] V28) (Primary Dx); Pain in toes of both feet; Metatarsalgia of right foot; Arthritis of both feet; Dermatophytosis, nail from Last 3 Months Immunizations Immunization Administration Dates Next Due Influenza trivalent, 0.5mL ( Fluad) 65yo and older 07/11/2023,08/05/2019,08/05/2017,08/15,07/28/2015 Influenza trivalent, 0.5mL ( Fluzone High-dose) 65yo and older 08/09/2025,11/05/2024 Influenza trivalent, with pr eservative (Fluzone; Afluria) [...] BILIARY TRACT; COMMENT: neg COLONOSCOPY 10/20/03 PROCEDURE: AL COLONOSCOPY STOMA DX INCLUDING COLLJ SPEC SPX; COMMENT: Jay; neg; R 5 y COLONOSCOPY 11/04/08 PROCEDURE: AL COLONOSCOPY STOMA DX INCLUDING COLLJ SPEC SPX; [...] complication, without long-term current use of insulin ([facility]/HCC V24, CMS/HCC V28) 07/04/2023 DX:Type 2 diabetes mellitus without complication, without long-term current use of insulin ([facility]) Functional dyspepsia DX:Function al dyspepsia Family [...] on file Sexual Orientation Not on file Last Filed Vital Signs Vital Sign Reading Time Taken Comments Blood Pressure 104/72 08/09/2025 10:50 AM EDT Pulse 67 08/09/2025 10:50 AM EDT Temperature 35.9 C (96.6 F) 08/09/2025 10:50 AM EDT Respiratory Rate - - Oxygen Saturation 99% 08/09/2025 10:50 AM EDT Inhaled Oxygen Concentration - - Weight 75.3 kg (166 lb) 08/09/2025 10:50 AM EDT Height 162.6 cm (5' 4 ) 08/09/2025 10:50 AM EDT Body Mass Index 28.49 08/09/2025 10:50 AM EDT Plan of Treatment Upcoming Encounters Date Type Department Care Team (Late st Contact Info) Description 10/27/2025 11:30 AM EST Medication Management Adult Medicine [address] [phone] Tawana Torres, PharmD [address] [place] [phone] 11/04/2025 8:30 AM EST Office Visit Internal Medicine - [place] 175 [facility] [address] [place] [phone] Danis Abraham MD [address] [place] [phone] 2025 9:00 AM EST Office Visit Orthopedic Surgery - [place] 250 [address] [facility] [address] [place] [phone] Reji Mayer DPM 175 [facility] [address] [place] [address] Health Maintenance Due Date Last Done Comments Diabetes: Annual Foot Exam 1955 Diabetes: Annual Retina Eye Exam 1955 Zoster Vaccines (1 of 2) 01/26/2014 12/01/2013 DTaP,Tdap,and Td Vaccines (2 - Td or Tdap) 04/28/2018 04/28/2008 RSV Immunization Adult Patients (1 - 1-dose 75+ series) 2022 COVID-19 Vaccine ( season) 2025 11/08/2023, 03/09/2021, 02/16/2021 Diabetes: Annual Urine Albumin-Creatinine Ratio (uACR) 11/05/2025 11/05/2024, 10/28/2023 Diabetes: Annual GFR (Glomerular Filtration Rate) 11/05/2025 11/05/2024, 04/29/2024, 04/29/2024 Falls Risk Assessment 11/05/2025 11/05/2024, 024 Medicare Annual Wellness Visit 11/05/2025 11/05/2024, 10/28/2023 Social Influencers of Health Screening 11/05/2025 11/05/2024 Diabetes: Blood Sugar Control Test (HGBA1C) 02/07/2026 08/09/2025, 11/05/2024, 04/29/2024, Additional history exists Colorectal Cancer Screening: Colonoscopy 01/13/2029 01/14/2024 Cholesterol Screening (Lipid Panel) 11/05/2029 11/05/2024, 10/28/2023 Osteoporosis Screening (Bone Density Screening) 08/22/2038 08/22/2023 Hepatitis C Screening Completed 02/20/2017 Pneumococcal Vaccine: 50+ Years Completed 07/20/2023, 02/10/2015, 10/12/2013, Additional history exists Breast Cancer Screening Discontinued 08/13/20, 08/13/2024, 08/08/2023, Additional history exists Depression Screening Completed 11/05/2024, 10/28/19 Influenza Vaccine Completed 08/09/2025, , 11/27/2023, Additional history exists HIB Vaccines Aged Out [...] Procedure Name Priority Date/Time Associated Diagnosis Comments HEMOGLOBIN A1C Routine 08/09/2025 11:36 AM EDT Type 2 diabetes mellitus without complication, without long-term current use of insulin ([facility] V24, [facility] V28) MICROALBUMIN CREATININE URINE RATIO Routine 11/05/2024 11:03 AM EST Type 2 diabetes mellitus without complication, without long-term current use of insulin ([facility] V24, CMS/HCC V28) COMPREHENSIVE METABOLIC PANEL Routine 11/05/2024 11:03 AM EST Medicare annual wellness visit, subsequent LIPID PANEL WITH REFLEX TO DIRECT LDL [...] Recently Relevant to Health Maintenance Results * (ABNORMAL) Hemoglobin A1c (08/09/2025 11:36 AM EDT) Hemoglobin A1C 8.4(H) <6.5 % LAB CHEMISTRY METHOD 08/09/2025 9:38 PM EDT [facility] Mean Bld Glu Estim. 194 mg/dL LAB CHEMISTRY METHOD 08/09/2025 9:38 PM EDT [facility] Blood Venous blood specimen / Unknown Venipuncture / Unknown 08/09/2025 11:36 AM EDT 08/09/2025 11:36 AM EDT us Danis Abraham MD LAB BLOOD ORDERABLES Final Resul t [facility] [address] [place] [address], [place] [phone] * Lipid panel with reflex to direct LDL (11/05/2024 11:03 AM EST) Cholesterol 163 0 - 200 mg/dL LAB CHEMISTRY METHOD 11/05/2024 3:33 PM EST [facility] Triglycerides 95 0 - 150 mg/dL LAB CHEMISTRY METHOD 11/05/2024 3:33 PM EST [facility] HDL 70 >=40 mg/dL LAB CHEMISTRY METHOD 11/05/2024 3:33 PM EST [facility] LDL Calculated 74 0 - 100 mg/dL LAB CHEMISTRY METHOD 11/05/2024 3:33 PM EST [facility] VLDL Cholesterol Lucio 19 mg/dL LAB CHEMISTRY METHOD 11/05/2024 3:33 PM EST [facility] Non HDL Chol. (LDL+VLDL) 93 <145 mg/dL LAB CHEMISTRY METHOD 11/05/2024 3:33 PM EST [facility] Chol/HDL Ratio 2.3 0.0 - 4.4 LAB CHEMISTRY METHOD 11/05/2024 3:33 PM EST [facility] Blood Venous blood specimen / Unknown Venipuncture / Unknown 11/05/2024 11:03 AM EST 11/05/2024 11:03 AM EST Danis Abraham MD LAB BLOOD ORDERABLES Final Resul t [facility] [address] [place] [address], [place] [phone] * (ABNORMAL) Microalbumin creatinine urine ratio (11/05/2024 11:03 AM EST) Creatinine, Urine 561.0 mg/dL LAB CHEMISTRY METHOD 11/05/2024 3:08 PM EST [facility] Comment:Results verified by repeat testing Microalb, Ur 69.9(H) 0.0 - 29.0 mg/L LAB CHEMISTRY METHOD 11/05/2024 3:08 PM [facility] Microalb/Crea t Ratio 12 <30 mg/g creat LAB CHEMISTRY METHOD 11/05/2024 3:08 PM [facility] Urine Urine specimen from urethra / Unknown Non-blood Collection / Unknown 11/05/2024 11:03 AM EST 11/05/2024 11:03 AM EST us Danis Abraham MD LAB URINE ORDERABLES Final Resul t [facility] [address] [place] [address], [place] [phone] * (ABNORMAL) Comprehensive metabolic panel (11/05/2024 11:03 AM EST) Sodium 138 133 - 145 mmol/L LAB CHEMISTRY METHOD 11/05/2024 3:33 PM [facility] Potassium 4.1 3.5 - 5.5 mmol/L LAB CHEMISTRY METHOD 11/05/2024 3:33 PM [facility] Chloride 105 96 - 110 mmol/L LAB CHEMISTRY METHOD 11/05/2024 3:33 PM [facility] CO2 25 21 - 32 mmol/L LAB CHEMISTRY METHOD 11/05/2024 3:33 PM [facility] Anion Gap 8 3 - 11 LAB CHEMISTRY METHOD 11/05/2024 3:33 PM [facility] Glucose 256(H) 70 - 100 mg/dL LAB CHEMISTRY METHOD 11/05/2024 3:33 PM [facility] BUN 21 5 - 25 mg/dL LAB CHEMISTRY METHOD 11/05/2024 3:33 PM [facility] Creatinine 1.65(H) 0.50 - 1.10 mg/dL LAB CHEMISTRY METHOD 11/05/2024 3:33 PM [facility] eGFR 32(L) >=60 mL/min/1. 73m2 LAB CHEMISTRY METHOD 11/05/2024 3:33 PM [facility] Comment:Calculation based on the Chronic Kidney Disease Epidemiology Collaboration (CKD-EPI) equation refit without adjustment for race. BUN/Creatinine Ratio 12.7 LAB CHEMISTRY METHOD 11/05/2024 3:33 PM [facility] Calcium 9.7 8.5 - 10.5 mg/dL LAB CHEMISTRY METHOD 11/05/2024 3:33 PM [facility] AST (SGOT) 18 10 - 42 unit/L LAB CHEMISTRY METHOD 11/05/2024 3:33 PM [facility] ALT (SGPT) 26 10 - 60 unit/L LAB CHEMISTRY METHOD 11/05/2024 3:33 PM [facility] Alkaline Phosphatase 89 42 - 121 unit/L LAB CHEMISTRY METHOD 11/05/2024 3:33 PM [facility] Total Protein 8.1(H) 6.0 - 8.0 g/dL LAB CHEMISTRY METHOD 11/05/2024 3:33 PM [facility] Albumin 4.2 3.2 - 5.0 g/dL LAB CHEMISTRY METHOD 11/05/2024 3:33 PM [facility] Total Bilirubin 1.5(H) 0.0 - 1.4 mg/dL LAB CHEMISTRY METHOD 11/05/2024 3:33 PM [facility] Blood Venous blood specimen / Unknown Venipuncture / Unknown 11/05/2024 11:03 AM EST 11/05/2024 11:03 AM EST us Danis Abraham MD LAB BLOOD ORDERABLES Final Resul t [facility] [address] [place] [address], * SCREENING MAMMOGRAPHY BI 2-VIEW BREAST INC [...] risk category Low (<15%) Location: [facility], [address] [place] [address], [id number], [phone] Procedure Note Susy Hill MD - 09/07/2024 [...] risk category Low (<15%) Location: [facility], [address] [place] [address], [id number], [phone] Result [facility] IMG XR PROCEDURES Final Result * Colonoscopy (01/14/2024) [facility] Colonoscopy Abstracted, no interpretation Anatomical Region Laterality Modality Other [facility] HEALTH MAINTENANCE Final Result * Falls Risk Assessment (10/28/2023) [facility] Falls Risk Assessment Abstracted Result Critical access hospital [facility] Final Result * Depression Screening (10/28/2023) [facility] Depression Screening Abstracted Result [facility] Final Result * DXA BONE DENSITY STUDY [...] normal bone density by WHO criteria. The [facility] Department of Internal Medicine recommends using National [...] alternative screening schedule based on bernice Ambrocio., [facility] November 01, 2011 for patients [...] normal bone density by WHO criteria. The [facility] Department of Internal Medicinerecommends using National Osteoporosis [...] FRAX. Optional alternative screening schedule based on liam Ambrocio al., [facility] for patients with osteopenia [...] Final Result * Hepatitis C Screening (02/20/2017) [facility] Hepatitis C Screening Abstracted Historical Provider HEALTH [...] currently active code status orders. Care Teams Reinforced Ironworker Relationship Specialty Start Date End Date Danis Abraham MD [address] [place] [phone] PCP - General 01/08/23
--- OUTSIDE RECORDS SUMMARY | 2025-09-22 19:50 | XMS_ITS | Encounter Summary ---
Author Organization [facility] Address [address] [place] [address] Care Team Providers Care Pony Ride Operator Name Role Phone Danis Abraham MD Primary Care Provider [phone] Encounter Details Date Type Department Care Team (Late st Contact Info) Description 05/11/2025 Telephone Adult Medicine [facility] [address] [place] [phone] Tawana Torres PharmD [address] [place] [phone] Social History Tobacco Use Types Packs/Day Years [...] 11:30 AM EST Medication Management Adult Medicine [facility] [address] [place] [address] Tawana Torres PharmD [address] [place] [address] 11/04/2025 8:30 AM EST Office Visit Internal Medicine [facility] 175 [facility] [address] [place] [phone] Danis Abraham MD [address] [place] [address] 2025 9:00 AM EST Office Visit Orthopedic Surgery [facility] 250 [address] [facility] [address] [place] [phone] Reji Mayer, DPJa [address] [address] documented as of this encounter Visit Diagnoses Not on filedocumented in this encounter Additional Health Concerns Assessment Noted Time PHQ-9 Depression Total Score: 0 11/05/19 25 10:29 AM EST documented as of this encounter Care Teams Pony Ride Operator Relationship Specialty Start Date End Date Danis Abraham MD [address] [phone] PCP - General 01/08/23 documented as of this encounter
== END 2025-09-22 13:31 | disposition home or self-care (01) ==
LOC: HO.HSMS 12:53
PROVIDERS: PCP Student in an Organized Health Care Education/Training Program; Visit Provider Psychiatry & Neurology Neurology
DX: R41.89 Other symptoms and signs involving cognitive functions and awareness (principal)
CPT/HCPCS: 99214; G2211

== ENCOUNTER → 2025-09-22 12:53 | Outpatient (BNVA) | payer MEDICARE, SELFPAY | PROVIDERS: PCP Student in an Organized Health Care Education/Training Program; Visit Provider Psychiatry & Neurology Neurology | DX: R51.9 Headache, unspecified (principal); R41.89 Other symptoms and signs involving cognitive functions and awareness; E11.9 Type 2 diabetes mellitus without complications | CPT/HCPCS: 99212 ==